=== PATIENT | male | born 2000 | race Caucasian/White ===

== ENCOUNTER 2021-02-04 13:50 | Outpatient (REF) | payer OTHER, SELFPAY ==
[2021-02-04 14:38] LABS: COVID-19 Test Positive (Negative)
== END 2021-02-04 13:51 | disposition home or self-care (01) ==
LOC: HO.LAB 13:50
PROVIDERS: Visit Provider Internal Medicine
DX: Z20.822 Contact with and (suspected) exposure to COVID-19 (principal)
CPT/HCPCS: 36415; 87635; C9803

== ENCOUNTER 2021-02-10 13:31 | Outpatient (REF) | payer OTHER, SELFPAY | END 2021-02-10 13:32 | disposition home or self-care (01) | LOC: HO.LAB 13:31 | PROVIDERS: Visit Provider Internal Medicine | DX: Z20.822 Contact with and (suspected) exposure to COVID-19 (principal) | CPT/HCPCS: C9803; U0003; U0005 ==

== ENCOUNTER 2021-06-05 19:57 | Emergency (ER) | payer OTHER, SELFPAY ==
[2021-06-05 21:53] LABS: COVID-19 Test Positive (Negative)
[2021-06-05 21:55] LABS: Strep A Nucleic Acid Negative (Negative)
--- NOTE | 2021-06-05 22:43 | ED_ITS ---
HPI - URI/Sore Throat General Stated Complaint: sore throat, back pain,headache Time Seen by Provider: 06/05/21 22:37 Source: patient Mode of arrival: ambulatory Limitations: no limitations History of Present Illness HPI Narrative: Patient comes to the emergency room complaining of sore throat, body ache, back pain. Patient states he has had multiple COVID tests over the last few weeks and all of them have been negative. Patient states that in February of last year he tested positive. Patient denies chest pain, no shortness of breath. Patient complaining of coughing. Patient states that he was smoking insurance cigarettes with a person 3 days ago that tested positive for COVID-19 2 days ago Related Data Previous Rx's Medication Instructions Recorded dextromethorphan HBr 10 mg/5 mL 10 mg (5 mL) PO Q4-6H PRN #118 ml 06/05/21 oral liquid ibuprofen 400 mg tablet 400 mg PO Q6H PRN #14 tab 06/05/21 Allergies Allergy/AdvReac Type Severity Reaction Status Date / Time Penicillins [PENICILLINS] Allergy Unknown SWELLING, Unverified 02/20/20 16:48 HIVES Review of Systems Review of Systems: Constitutional : No Weight loss, No Fever, No Chills, No Night Sweats, complaining of generalized malaise, fatigue ENT/Mouth : No Hearing loss, No Ear Pain, No Nasal Congestion, No Sinus Pain, No Hoarseness, No sore throat, No Rhinorrhea, No Swallowing Difficulty Eyes: No Eye Pain, No Swelling, No Redness, No Foreign Body, No Discharge, No Vision Changes Cardiovascular : No Chest Pain, No SOB, No Dyspnea on Exertion, No Orthopnea, No Edema, No Palpitations Respiratory : Complaining of dry Cough, No Sputum, No Wheezing, No Smoke Exposure, No Dyspnea Gastrointestinal : No Nausea, No Vomiting, No Diarrhea, No Constipation, No abdominal Pain, No Hematochezia, No Melena Genitourinary : no irregular bleeding, No Dysuria, No Urinary Frequency, No Hematuria, No Urinary Incontinence, No Urgency, No Flank Pain, No Urinary Flow Changes, No Hesitancy Musculoskeletal : Complaining of back pain and myalgias, No Joint Swelling Skin : No Skin Lesions, No rash Neuro : No Weakness, No Numbness, No Paresthesias, No Loss of Consciousness, No Dizziness, No Headache Psych : No Anxiety/Panic, No Depression, No SI/HI/AH/VH, No Social Issues, Heme/Lymph: No Bruising, No Bleeding,No Lymphadenopathy Endocrine : No Polyuria, No Polydipsia, No Temperature Intolerance PMFSH Social History Social History Advance Directives: No Physical Exam Const: Other: Appearance: Alert. Oriented X3. No acute distress. Well- appearing Eyes: Pupils equal, round and reactive to light. ENT: Pharynx normal. Neck: Normal inspection. Neck supple. No lymph nodes noted. No crepitus CVS: Normal heart rate and rhythm. Pulses normal. Normal S1 and S2 Respiratory: No respiratory distress. Breath sounds normal. No Wheezing. No rales Abdomen: Soft and nontender. No rigidity. No distention. Skin: Skin warm and dry. Normal skin color. Normal skin turgor. Extremities: No lower extremity edema. No Lacerations. No Rash Neuro: Oriented X 3. No motor deficit. No sensory deficit. Moving all extermities. No slurred speech. Course Course Course Narrative: I discussed with the patient he tested positive for COVID-19. MDM - URI/Sore Throat Lab Data Labs: Lab Results 06/05/21 06/05/21 Range/Units 21:31 21:31 COVID-19 ([facility]) Positive A (Negative) COVID-19 Clin Com See Note S. pyogenes GrpA C[facility] Negative (Negative) Discharge Plan Discharge Clinical Impression: COVID-19 Patient Disposition: Home, Self-Care Instructions: COVID-19 (Coronavirus Disease 2019) (ED) Additional Instructions: Please follow-up with your primary care physician tomorrow. If you have any worsening or new symptoms, please return to the emergency room or call 911 Prescriptions: New ibuprofen 400 mg tablet 400 mg PO Q6H PRN (Reason: fever or pain) Qty: 14 RF: 0 dextromethorphan HBr 10 mg/5 mL liquid 10 mg PO Q4-6H PRN (Reason: cough) Qty: 118 RF: 0 Stand Alone Forms: Work/School Release
[2021-06-05 23:24] VITALS: BP 170/43; PULSE 93; RESP 16; TEMP 37.9; O2SAT 98; BMI 20.9
== END 2021-06-05 23:26 | disposition home or self-care (01) ==
PROVIDERS: Emergency Provider Emergency Medicine
DX: U07.1 COVID-19 (principal); J02.8 Acute pharyngitis due to other specified organisms; M79.10 Myalgia, unspecified site
CPT/HCPCS: 36415; 87635; 87651; 99282; 99283

== ENCOUNTER 2021-08-05 14:37 | Emergency (ER) | payer OTHER, SELFPAY ==
[2021-08-05 14:39] VITALS: BP 122/82; PULSE 91; RESP 18; TEMP 36.1; O2SAT 97; BMI 20.9
--- NOTE | 2021-08-05 15:27 | ED_ITS ---
HPI - General Adult General Chief complaint: Back Pain/Injury Stated complaint: BACK PAIN Time Seen by Provider: 08/05/21 15:27 Source: patient Limitations: no limitations History of Present Illness HPI narrative: Patient complaining of midback lower back pain. 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 Patient states pain increases with range of motion and twisting. Pain 6/10. No relief with [id number] Motrin at home. Patient takes no prescribed medications. Patient denies past medical history. Patient does smoke tobacco. Patient denies loss of bowel movements or urine incontinence. Symptoms mild to moderate Related Data Previous Rx's Medication Instructions Recorded dextromethorphan HBr 10 mg/5 mL 10 mg (5 mL) PO Q4-6H PRN #118 ml 06/05/21 oral liquid ibuprofen 400 mg tablet 400 mg PO Q6H PRN #14 tab 06/05/21 ibuprofen 600 mg tablet 600 mg PO TID PRN #20 tab 08/05/21 methocarbamol 750 mg tablet 750 mg PO TID PRN #20 tab 08/05/21 Allergies Allergy/AdvReac Type Severity Reaction Status Date / Time Penicillins [PENICILLINS] Allergy Unknown SWELLING, Verified 08/05/21 14:39 HIVES Review of Systems Constitutional: Constitutional: Denies body ache(s), Denies chills, Denies fever(s) and Denies headache(s) ENT: Denies headache(s) and Denies neck pain Cardiovascular: Cardiovascular: Denies chest pain and Denies dyspnea Respiratory: Respiratory: Denies dyspnea Musculoskeletal: Musculoskeletal: Reports back pain, Denies arthralgias, Denies neck pain and Reports stiffness Neurologic: Denies headache(s) Allergic/Immunologic: Allergic/Immunologic: Reports no additional allergic/immunologic complaints [facility] Past Medical History Attestation statement: The following information was validated with the patient. Social History Social History Advance Directives: No Advance Directives Information Provided: No Physical Exam ED Vital Signs: Vital Signs - 24 hr 08/05/21 14:39 Temperature 97.0 F Pulse Rate 91 Respiratory Rate 18 Blood Pressure 122/82 Pulse Oximetry 97 BMI result Body Mass Index 20.9 vital signs have been reviewed as normal and appeared to be correct. Blood pressure normal. Heart rate normal. Respiration rate normal. Temperature normal. Oxygen saturation normal. Appearance: Alert. Oriented X3. No acute distress. Head: Normal external exam. Normocephalic. Atraumatic. Eyes: PERRLA. EOMI. Conjunctiva and sclera normal. Eyelids normal. ENT: Pharynx normal. Uvula midline. Moist mucous membranes. Neck: Soft full range of motion, no JVD CVS: Heart regular rate and rhythm no murmurs and rubs Respiratory: Breath sounds are clear to auscultation bilaterally. No accessory muscle use noted. Back: Full range of motion noted. Positive paraspinal muscle tenderness mid back no midline tenderness Skin: Skin warm and dry. Normal skin color. No ecchymosis no rashes. Extremities: Patient is ambulatory with no ataxia or Neuro: Oriented X 3. No motor deficit. No sensory deficit. Reflexes normal. Course Course Course Narrative: Lumbar strain Mid back strain Muscle spasm Symptoms consistent with muscle skeletal pain no imaging needed at this time advised follow-up with PCP as needed medication as directed. Discharge Plan Discharge Clinical Impression: Acute mid back pain Patient Disposition: Home, Self-Care Instructions: Back Pain (ED) Additional Instructions: Rest no heavy lifting Medications as directed Prescriptions: New ibuprofen 600 mg tablet 600 mg PO TID PRN (Reason: pain) Qty: 20 0RF methocarbamol 750 mg tablet 750 mg PO TID PRN (Reason: muscle spasm) Qty: 20 0RF No Action ibuprofen 400 mg tablet 400 mg PO Q6H PRN (Reason: fever or pain) Qty: 14 0RF dextromethorphan HBr 10 mg/5 mL liquid 10 mg PO Q4-6H PRN (Reason: cough) Qty: 118 0RF Stand Alone Forms: Work/School Release
== END 2021-08-05 16:00 | disposition home or self-care (01) ==
PROVIDERS: Emergency Provider Emergency Medicine
DX: M54.50 Low back pain, unspecified (principal)
CPT/HCPCS: 99282; 99283

== ENCOUNTER 2022-01-09 14:10 | Emergency (ER) | payer OTHER, SELFPAY ==
[2022-01-09 15:04] VITALS: BP 122/92; PULSE 68; RESP 18; TEMP 36.6; O2SAT 97; BMI 18.6
[2022-01-09 15:20] LABS: COVID-19 Test Negative (Negative); IDNOW Serial# 16C4AD1C
== END 2022-01-09 20:05 | disposition left against medical advice (07) ==
PROVIDERS: Emergency Provider Emergency Medicine
DX: Z20.822 Contact with and (suspected) exposure to COVID-19 (principal)
CPT/HCPCS: 87635; 99281; 99283

== ENCOUNTER 2022-09-04 15:52 | Emergency (ER) | payer OTHER, SELFPAY ==
--- NOTE | ~2022-09-04 | XR_ITS ---
EXAMINATION: XR CHEST CLINICAL INFORMATION: Cough. COMPARISON: None available. TECHNIQUE: Frontal view of the chest was obtained. FINDINGS: No significant abnormality is noted involving the heart, lungs, mediastinum, bony thorax or soft tissues. XR/XR chest 1V IMPRESSION: Unremarkable chest examination.
[2022-09-04 15:59] VITALS: BP 145/85; PULSE 100; RESP 18; TEMP 36.8; O2SAT 99
--- NOTE | 2022-09-04 16:06 | ED_ITS ---
HPI - URI/Sore Throat General Chief Complaint: Upper Respiratory Symptoms <CASS Ballesteros - Last Filed: 09/04/22 16:07> Stated Complaint: common cold, chills, coughing, covid test <CASS Ballesteros - Last Filed: 09/04/22 16:07> Time Seen by Provider: 09/04/22 16:18 <CASS Ballesteros - Last Filed: 09/04/22 16:07> Source: patient <Val Horton NP - Last Filed: 09/04/22 18:58> Mode of arrival: ambulatory <Val Horton NP - Last Filed: 09/04/22 18:58> Limitations: no limitations <Val Horton NP - Last Filed: 09/04/22 18:58> History of Present Illness HPI Narrative: 22-year-old male presents with 3 days of upper respiratory symptoms, cough, subjective fevers, chills, and wheezing. States that he has been using [id number] cough medication with poor effect. <Val Horton NP - Last Filed: 09/04/22 18:58> MD elicited complaint: fever, cough, nasal congestion and other (Wheezing) <Val Horton NP - Last Filed: 09/04/22 18:58> Pertinent past history: asthma <Val Horton NP - Last Filed: 09/04/22 18:58> Onset (ago): day(s) (3) <Val Horton NP - Last Filed: 09/04/22 18:58> Consistency: constant and progressively worsening <Val Horton NP - Last Filed: 09/04/22 18:58> Severity: moderate <Val Horton NP - Last Filed: 09/04/22 18:58> Description of mucous: clear and watery <Val Horton NP - Last Filed: 09/04/22 18:58> Able to tolerate fluids by mouth: Yes <Val Horton NP - Last Filed: 09/04/22 18:58> Exacerbating factors: exertion and deep breaths <Val Horton NP - Last Filed: 09/04/22 18:58> Relieving factors: nothing <PABLITO Beckwith Last Filed: 09/04/22 18:58> Context: sick contacts <PABLITO Beckwith Last Filed: 09/04/22 18:58> Associated symptoms: fever, chills, myalgias, rhinorrhea, nasal congestion and cough <PABLITO Beckwith Last Filed: 09/04/22 18:58> Treatments prior to arrival: cold medicine <PABLITO Beckwith Last Filed: 09/04/22 18:58> Related Data Home Medications: Previous Rx's Medication Instructions Recorded dextromethorphan HBr 10 mg/5 mL 10 mg (5 mL) PO Q4-6H PRN cough 06/05/21 oral liquid #118 mL ibuprofen 400 mg tablet 400 mg PO Q6H PRN fever or pain 06/05/21 #14 tabs ibuprofen 600 mg tablet 600 mg PO TID PRN pain #20 tabs 08/05/21 methocarbamol 750 mg tablet 750 mg PO TID PRN muscle spasm #20 08/05/21 tabs albuterol sulfate 90 mcg/actuation 2 puff inhalation Q4-6H PRN 09/04/22 aerosol inhaler (Proventil HFA) shortness of breath or wheezing 30 days #6.7 grams benzonatate 100 mg capsule 100 mg PO TID PRN cough #20 caps 09/04/22 <CASS Ballesteros Last Filed: 09/04/22 16:07> Allergies/Adverse Reactions: Allergies Allergy/AdvReac Type Severity Reaction Status Date / Time Penicillins [PENICILLINS] Allergy Unknown SWELLING, Verified 08/05/21 14:39 HIVES <CASS Ballesteros Last Filed: 09/04/22 16:07> Review of Systems Review of Systems: Constitutional: Positive subjective Fever, positive Chills Cardiovascular: No Chest Pain, No SOB Respiratory: Positive Cough, No Dyspnea, positive wheezing Gastrointestinal: No Nausea, No Vomiting, No Diarrhea, No abdominal Pain Genitourinary: No Dysuria, No Hematuria Musculoskeletal: No joint pain, No Myalgias, No Joint Swelling Skin: No Skin lacerations, No rash Neuro: No Weakness, No Dizziness, No Headache <PABLITO Beckwith Last Filed: 09/04/22 18:58> Yes all other systems are reviewed and are negative <Val Horton NP - Last Filed: 09/04/22 18:58> [facility] Past Medical History Attestation statement: The following information was validated with the patient. <Val Horton NP - Last Filed: 09/04/22 18:58> Source: old records reviewed <Val Horton NP - Last Filed: 09/04/22 18:58> Social History Social History: Social History Advance Directives: No Advance Directives Information Provided: No <CASS Ballesteros - Last Filed: 09/04/22 16:07> Physical Exam Vital Signs: Vital Signs: Last Vital Signs Temp 98.3 F 09/04/22 15:59 Pulse 92 09/04/22 17:05 Resp 20 09/04/22 17:05 BP 145/85 H 09/04/22 15:59 Pulse Ox 99 09/04/22 15:59 O2 Del Method Room Air 09/04/22 15:59 BMI result Body Mass Index 20.0 <CASS Ballesteros - Last Filed: 09/04/22 16:07> Vital Signs: Last Vital Signs Temp 98.3 F 09/04/22 15:59 Pulse 92 09/04/22 17:05 Resp 20 09/04/22 17:05 BP 145/85 H 09/04/22 15:59 Pulse Ox 99 09/04/22 15:59 O2 Del Method Room Air 09/04/22 15:59 BMI result Body Mass Index 20.0 <Val Horton NP - Last Filed: 09/04/22 18:58> Appearance: Alert. Oriented X3. No acute distress. Eyes: Pupils equal, round and reactive to light. EOMI. ENT: Pharynx normal. Neck: Normal inspection. Neck supple. CVS: Normal heart rate and rhythm. Pulses normal. Respiratory: No respiratory distress. Expiratory wheezing throughout all lobes. Diminished air flow the bases. Skin: Skin warm and dry. Normal skin color. Normal skin turgor. Extremities: No lower extremity edema. Gait well balanced well coordinated. Neuro: No motor deficit. No sensory deficit. Cranial nerves 2-12 technique <Val Horton NP - Last Filed: 09/04/22 18:58> Course Course Course Narrative: This is an RME: Additional HPI, ROS, PE not included below will be deferred to primary provider. This is a 22-year-old male presenting with upper respiratory symptoms x4 days, patient reports he thinks he has COVID-19, tells me he has had COVID 6 times and he has against the vaccine. Reports cough, congestion, fatigue, malaise, diffuse headache Physical exam benign Plan viral testing and chest x-ray <CASS Ballesteros - Last Filed: 09/04/22 16:07> This is an RME: Additional HPI, ROS, PE not included below will be deferred to primary provider. This is a 22-year-old male presenting with upper respiratory symptoms x4 days, patient reports he thinks he has COVID-19, tells me he has had COVID 6 times and he has against the vaccine. Reports cough, congestion, fatigue, malaise, diffuse headache Physical exam benign Plan viral testing and chest x-ray 16:15 22-year-old male presents with 4 days of upper respiratory symptoms, states that he feels the same as when he was tested positive for COVID-19. He has had cough, wheezing, subjective fevers and chills, and fatigue over the past 4 days. He does have a history of asthma, does not take any medications, and has never been intubated for asthma exacerbation. Patient's physical exam lung sounds expiratory wheezing with diminished bases, appears nontoxic, afebrile. Patient does complain of myalgia. Will give dexamethasone, albuterol neb, Tessalon and Tylenol. Viral panel pending. Chest x-ray pending. 17:43 chest x-ray and viral panel are negative for acute findings. Plan of care is to treat with supportive measures, give albuterol inhaler, Tessalon Perles and Tylenol Motrin. Patient verbalized understanding of and agrees plan of care discharge home. Verbalized understanding of signs and symptoms indicating need for emergent intervention This patient does not have an established primary care. Patient would like to be referred to [facility]. I have referred this patient to Dr. Milian and Denys Ag, patient has had untreated asthma for the several years. This patient may require pulmonology consult in the near future. <Val Horton NP - Last Filed: 09/04/22 18:58> Medications Administered Discontinued Medications Generic Name Dose Route Start Last Admin Trade Name Freq PRN Reason Stop Dose Admin Acetaminophen 650 mg 09/04/22 16:23 09/04/22 16:55 Acetaminophen 325 Mg Tablet PO 09/04/22 16:24 650 mg ONCE ONE Administration Albuterol Sulfate 10 mg 09/04/22 16:23 09/04/22 17:04 Albuterol Sulfate (0.083%) 2.5 Mg/3 Ml Vial.Neb INHALE 09/04/22 16:24 10 mg ONCE ONE Administration Albuterol Sulfate 2 puff 09/04/22 17:43 09/04/22 18:23 Albuterol Sulfate 90 Mcg 8 Gm Inhaler INHALE 09/04/22 17:44 2 puff ONCE ONE Administration Benzonatate 200 mg 09/04/22 16:23 09/04/22 16:55 Benzonatate 100 Mg Capsule PO 09/04/22 16:24 200 mg ONCE ONE Administration Dexamethasone 10 mg 09/04/22 16:23 09/04/22 16:55 Dexamethasone 2 Mg Tablet PO 09/04/22 16:24 10 mg ONCE ONE Administration <CASS Ballesteros - Last Filed: 09/04/22 16:07> Medications Administered Discontinued Medications Generic Name Dose Route Start Last Admin Trade Name Freq PRN Reason Stop Dose Admin Acetaminophen 650 mg 09/04/22 16:23 09/04/22 16:55 Acetaminophen 325 Mg Tablet PO 09/04/22 16:24 650 mg ONCE ONE Administration Albuterol Sulfate 10 mg 09/04/22 16:23 09/04/22 17:04 Albuterol Sulfate (0.083%) 2.5 Mg/3 Ml Vial.Neb INHALE 09/04/22 16:24 10 mg ONCE ONE Administration Albuterol Sulfate 2 puff 09/04/22 17:43 09/04/22 18:23 Albuterol Sulfate 90 Mcg 8 Gm Inhaler INHALE 09/04/22 17:44 2 puff ONCE ONE Administration Benzonatate 200 mg 09/04/22 16:23 09/04/22 16:55 Benzonatate 100 Mg Capsule PO 09/04/22 16:24 200 mg ONCE ONE Administration Dexamethasone 10 mg 09/04/22 16:23 09/04/22 16:55 Dexamethasone 2 Mg Tablet PO 09/04/22 16:24 10 mg ONCE ONE Administration <Val Horton NP - Last Filed: 09/04/22 18:58> Medical Decision Making Differential Diagnosis Differential Diagnoses: The differential diagnosis associated with the presentation includes <Val Horton NP - Last Filed: 09/04/22 18:58> URI, COVID, influenza, pneumonia <Val Horton NP - Last Filed: 09/04/22 18:58> Lab Data MDM Lab Attestation statement: I reviewed the patient's lab results. <Val Horton NP - Last Filed: 09/04/22 18:58> Labs: Lab Results 09/04/22 09/04/22 Range/Units 16:18 16:18 COVID-19 ([facility]) Negative (Negative) COVID-19 Clin Com See Note Influenza Type A ([facility]) Negative (Negative) Influenza Type B ([facility]ASS) Negative (Negative) Influenza A & B Note See Note <CASS Ballesteros - Last Filed: 09/04/22 16:07> Lab Results 09/04/22 09/04/22 Range/Units 16:18 16:18 COVID-19 ([facility]) Negative (Negative) COVID-19 Clin Com See Note Influenza Type A (CASS) Negative (Negative) Influenza Type B (CASS) Negative (Negative) Influenza A & B Note See Note <Val Horton NP - Last Filed: 09/04/22 18:58> Independent Interpretation I performed an independent interpretation of an: Plain X-Ray <Val Horton NP - Last Filed: 09/04/22 18:58> Radiology Impression Discussion of test interpretation with radiology: I have reviewed the radiologist's reading. <Val Horton NP - Last Filed: 09/04/22 18:58> Radiologist Impression: EXAMINATION: XR CHEST CLINICAL INFORMATION: Cough. COMPARISON: None available. TECHNIQUE: Frontal view of the chest was obtained. FINDINGS: No significant abnormality is noted involving the heart, lungs, mediastinum, bony thorax or soft tissues. XR/XR chest 1V IMPRESSION: Unremarkable chest examination. ? <Val Horton NP - Last Filed: 09/04/22 18:58> External Record Review External record reviewed: Outpatient record and Prior outpatient labs <Val Horton NP - Last Filed: 09/04/22 18:58> Chronic Conditions Patient?s care impacted by: Other (Asthma) <Val Horton NP - Last Filed: 09/04/22 18:58> Discharge Plan Discharge Clinical Impression: Upper respiratory infection <CASS Ballesteros - Last Filed: 09/04/22 16:07> Patient Disposition: Home, Self-Care <CASS Ballesteros - Last Filed: 09/04/22 16:07> Instructions: Upper Respiratory Infection (ED), Viral Syndrome (ED) <CASS Ballesteros - Last Filed: 09/04/22 16:07> Additional Instructions: You were evaluated for upper respiratory symptoms. Your x-rays negative for acute findings. Your COVID influenza RSV test are negative. Please use albuterol inhaler as needed for shortness of breath. Use Tessalon Perles every 8 hours as needed for cough. Drink plenty of fluids. Alternate Tylenol 650 mg every 6 hours and Motrin 600 mg every 6 hours as needed for pain and fever management. Consider taking these medications 3 hours apart so you have pain and fever management every 3 hours. Write down what time you take these medications to prevent accidental overdose. Motrin is the same medication as Advil and ibuprofen. Tylenol is the same medication as acetaminophen. Thank you for choosing this emergency department for evaluation. Please follow-up with primary care physician as needed. Return to the emergency department for any new, concerning, or worsening symptoms. <CASS Ballesteros - Last Filed: 09/04/22 16:07> Prescriptions: New albuterol sulfate [Proventil HFA] 90 mcg/actuation HFA aerosol inhaler 2 puff inhalation Q4-6H PRN (Reason: shortness of breath or wheezing) 30 Days Qty: 6.7 6RF Rx Instructions: May dispense medication equivalent accepted by patient's insurance benzonatate 100 mg capsule 100 mg PO TID PRN (Reason: cough) Qty: 20 0RF No Action ibuprofen 400 mg tablet 400 mg PO Q6H PRN (Reason: fever or pain) Qty: 14 0RF dextromethorphan HBr 10 mg/5 mL liquid 10 mg PO Q4-6H PRN (Reason: cough) Qty: 118 0RF ibuprofen 600 mg tablet 600 mg PO TID PRN (Reason: pain) Qty: 20 0RF methocarbamol 750 mg tablet 750 mg PO TID PRN (Reason: muscle spasm) Qty: 20 0RF <CASS Ballesteros - Last Filed: 09/04/22 16:07> Referrals: Denys Dugan FNP-BC [Nurse Practitioner] - 2 weeks (Needs primary care) <CASS Ballesteros - Last Filed: 09/04/22 16:07> Stand Alone Forms: Work/School Release <CASS Ballesteros - Last Filed: 09/04/22 16:07> Interventions: ED Discharge Assessment Last Done: 09/04/22 18:37 <CASS Ballesteros - Last Filed: 09/04/22 16:07> Discharge Date/Time: 09/04/22 18:38 <CASS Ballesteros - Last Filed: 09/04/22 16:07>
[2022-09-04] MEDS: Acetaminophen 325 MG TABLET 650 MG PO (16:55)
[2022-09-04] MEDS: Benzonatate 100 MG CAPSULE 200 MG PO (16:55)
[2022-09-04] MEDS: dexAMETHasone 2 MG TABLET 10 MG PO (16:55)
[2022-09-04 17:00] LABS: COVID-19 Test Negative (Negative); IDNOW Serial# 08D9AD1C; IDNOW Serial# BCCEAD1C; Influenza A Negative (Negative); Influenza B2 Negative (Negative)
[2022-09-04] MEDS: Albuterol Sulfate (0.083%) 2.5 MG/3 ML VIAL.NEB 10 MG INHALE (17:04)
[2022-09-04 17:05] VITALS: PULSE 92; RESP 20; O2SAT 97
[2022-09-04] MEDS: Albuterol Sulfate 90 MCG 8 GM INHALER 2 PUFF INHALE (18:23)
== END 2022-09-04 18:38 | disposition home or self-care (01) ==
PROVIDERS: Physician Assistant; Emergency Provider Emergency Medicine Emergency Medical Services
DX: J06.9 Acute upper respiratory infection, unspecified (principal); R05.9 Cough, unspecified; R50.9 Fever, unspecified; Z20.822 Contact with and (suspected) exposure to COVID-19; Z20.828 Contact with and (suspected) exposure to other viral communicable diseases
CPT/HCPCS: 71045; 87502; 87635; 94640; 99283; J8540

== ENCOUNTER 2023-03-13 11:15 | Emergency (ER) | payer OTHER, SELFPAY | END 2023-03-13 14:05 | disposition left against medical advice (07) | PROVIDERS: Emergency Provider Emergency Medicine | DX: J02.8 Acute pharyngitis due to other specified organisms (principal); R05.9 Cough, unspecified ==

== ENCOUNTER 2023-04-24 09:45 | Emergency (ER) | payer SELFPAY ==
[2023-04-24 10:02] VITALS: BP 118/74; PULSE 75; RESP 16; TEMP 36.7; O2SAT 96; BMI 18.6
[2023-04-24 10:57] VITALS: BP 133/90; PULSE 61; RESP 16; TEMP 36.7; O2SAT 99
[2023-04-24 11:27] LABS: Influenza A PCR NEGATIVE (Negative); Influenza B PCR NEGATIVE (Negative); Resp Syncy Virus RNA Qual PCR NEGATIVE (Negative); SARS COV2 PCR INHOUSE NEGATIVE (Negative)
--- NOTE | 2023-04-24 11:40 | ED_ITS ---
HPI - General Adult General Chief complaint: Upper Respiratory Symptoms Stated complaint: chest pain congestion Time Seen by Provider: 04/24/23 11:05 Source: patient Mode of arrival: ambulatory Limitations: no limitations History of Present Illness HPI narrative: 23-year-old male without significant medical history presents complaining of congestion, cough, wheezing for the past 3 days, patient reports he works at [employer] multiple sick contacts. He reports he has been waiting for too long and would like to leave when I get his history, he tells me he just feels cold and has chills. Reports chest discomfort when he coughs and shortness of breath with cough however at rest no chest pain or shortness of breath. Denies headache, vision changes, sore throat, ear pain, nausea, vomiting, abdominal pain. Related Data Previous Rx's Medication Instructions Recorded dextromethorphan HBr 10 mg/5 mL 10 mg (5 mL) PO Q4-6H PRN cough 06/05/21 oral liquid #118 mL ibuprofen 400 mg tablet 400 mg PO Q6H PRN fever or pain 06/05/21 #14 tabs ibuprofen 600 mg tablet 600 mg PO TID PRN pain #20 tabs 08/05/21 methocarbamol 750 mg tablet 750 mg PO TID PRN muscle spasm #20 08/05/21 tabs albuterol sulfate 90 mcg/actuation 2 puff inhalation Q4-6H PRN 09/04/22 aerosol inhaler (Proventil HFA) shortness of breath or wheezing 30 days #6.7 grams benzonatate 100 mg capsule 100 mg PO TID PRN cough #20 caps 09/04/22 Allergies Allergy/AdvReac Type Severity Reaction Status Date / Time Penicillins [PENICILLINS] Allergy Unknown SWELLING, Verified 08/05/21 14:39 HIVES Review of Systems Review of Systems: Constitutional : No Weight loss, No Fever, No Chills, + Fatigue, + Malaise ENT/Mouth : No sore throat, No Rhinorrhea Eyes: No Eye Pain, No Swelling, No Redness Cardiovascular : No Chest Pain, No SOB, No Dyspnea on Exertion, No Orthopnea, No Edema, No Palpitations Respiratory : + Cough, No Sputum, No Wheezing Gastrointestinal : No Nausea, No Vomiting, No Diarrhea, No Constipation, No abdominal Pain, No Hematochezia, No Melena Genitourinary : No Dysuria, No Urinary Frequency, No Hematuria, Musculoskeletal : No joint pain, No Myalgias, No Joint Swelling Skin : No Skin Lesions, No rash Neuro : No Weakness, No Numbness, No Dizziness, No Headache Psych : No Anxiety/Panic, No Depression All other systems reviewed and are negative Yes all other systems are reviewed and are negative [facility] Past Medical History Attestation statement: The following information was validated with the patient. Source: old records reviewed and nursing notes reviewed Social History Social History Alcohol intake: current Alcohol intake frequency: holidays/special occasions only Smoked in Last 30 Days: Yes Use of substances other than those prescribed or required for medical reasons: Yes Substance Use Type: Marijuana Advance Directives: No Advance Directives Information Provided: No Physical Exam ED Vital Signs: Vital Signs - 24 hr 04/24/23 10:02 04/24/23 10:57 Temperature 98.1 F 98.0 F Pulse Rate 75 61 Respiratory Rate 16 16 Blood Pressure 118/74 133/90 H Pulse Oximetry 96 99 Oxygen Delivery Method Room Air Room Air BMI result Body Mass Index 18.6 vss Appearance: Alert.? Oriented X3.? No acute distress.? Head: Normocephalic, atraumatic, no step-offs or deformities Eyes: Pupils equal, round and reactive to light.? CVS: Normal heart rate and rhythm.? Pulses normal.? Respiratory: No respiratory distress.? Breath sounds normal.? Skin: Skin warm and dry.? Normal skin color.? Normal skin turgor.? Extremities: No lower extremity edema.? No calf ttp. 5/5 strength to bilateral upper and lower extremities Neuro: Oriented X 3.? No motor deficit.? No sensory deficit. CN 2-12 intact Course Reevaluation(s) Reevaluation #1: Flu/COVID/RSV negative. Educated patient on diagnosis and treatment plan, answered all question, patient verbalizes understanding. At this time patient will be discharged home, advised to return with new or worsening symptoms. Educated on worrisome signs and symptoms and when to return. At this time I feel comfortable discharge home. Time: 11:44 Medical Decision Making Medical Decision Making [facility] Narrative: 1142 23-year-old male presents with cough, congestion, reports multiple sick contacts at past 3 days. Physical examination benign. Likely upper respiratory infection versus bronchitis versus asthma versus viral illness. Unlikely pulmonary embolism, no risk factors, ACS, dissection, pneumothorax, pneumonia. Plan will discharge with albuterol and work note. Patient requesting to leave does not want an x-ray he just wants to get out of here because he is cold. He reports he wants to go into his warm vehicle. Educated patient on diagnosis and treatment plan, answered all question, patient verbalizes understanding. At this time patient will be discharged home, advised to return with new or worsening symptoms. Educated on worrisome signs and symptoms and when to return. At this time I feel comfortable discharge home. Differential Diagnosis Differential Diagnoses: The differential diagnosis associated with the presentation includes Likely upper respiratory infection versus bronchitis versus asthma versus viral illness. Unlikely pulmonary embolism, no risk factors, ACS, dissection, pneumothorax, pneumonia. Admission/Observation Consideration of admission/observation: Escalation of care including admission/observation considered not indicated Lab Data MDM Lab Attestation statement: I reviewed the patient's lab results. Labs: Lab Results 04/24/23 Range/Units 10:14 Influenza Type A (PCR) NEGATIVE (Negative) Influenza Type B (PCR) NEGATIVE (Negative) RSV RNA Qual (PCR) NEGATIVE (Negative) SARS-CoV-2 RNA (RT-PCR) NEGATIVE (Negative) Tests considered The following testing was considered but not selected: patient wanted to leave no true indication for chest xray patient saturating well lungs clear. Prescription Management I considered prescription management with: Other (albuterol ) Discharge Plan Discharge Clinical Impression: Viral infection Patient Disposition: Home, Self-Care Instructions: Viral Syndrome (ED) Additional Instructions: Take your medications as prescribed. If you were prescribed antibiotics today, it is important that you take your medication to their entirety, do not skip any doses, do not finish them early. Follow-up with your primary care provider this week. Return to the emergency department with new or worsening symptoms. Such as fevers, chills, chest pain, shortness of breath, nausea, vomiting, dizziness, headache, vision changes, lethargy In case of emergency call 911 Prescriptions: No Action ibuprofen 400 mg tablet 400 mg PO Q6H PRN (Reason: fever or pain) Qty: 14 0RF dextromethorphan HBr 10 mg/5 mL liquid 10 mg PO Q4-6H PRN (Reason: cough) Qty: 118 0RF ibuprofen 600 mg tablet 600 mg PO TID PRN (Reason: pain) Qty: 20 0RF methocarbamol 750 mg tablet 750 mg PO TID PRN (Reason: muscle spasm) Qty: 20 0RF albuterol sulfate [Proventil HFA] 90 mcg/actuation HFA aerosol inhaler 2 puff inhalation Q4-6H PRN (Reason: shortness of breath or wheezing) 30 Days Qty: 6.7 6RF Rx Instructions: May dispense medication equivalent accepted by patient's insurance benzonatate 100 mg capsule 100 mg PO TID PRN (Reason: cough) Qty: 20 0RF Referrals: Physician,Unknown J [Primary Care Provider] - 3 days Stand Alone Forms: Work/School Release
== END 2023-04-24 12:01 | disposition home or self-care (01) ==
PROVIDERS: Emergency Provider Emergency Medicine
DX: B34.9 Viral infection, unspecified (principal); R05.9 Cough, unspecified; Z20.828 Contact with and (suspected) exposure to other viral communicable diseases; Z20.822 Contact with and (suspected) exposure to COVID-19
CPT/HCPCS: 0241U; 99283; 99284

== ENCOUNTER 2023-05-22 13:30 | Emergency (ER) | payer SELFPAY | END 2023-05-22 15:57 | disposition left against medical advice (07) | LOC: HO.ED 15:26 | PROVIDERS: Emergency Provider Emergency Medicine | DX: J02.9 Acute pharyngitis, unspecified (principal); R05.9 Cough, unspecified ==

== ENCOUNTER 2023-05-22 23:18 | Emergency (ER) | payer SELFPAY ==
[2023-05-22 23:23] VITALS: BP 119/78; PULSE 81; RESP 20; TEMP 36.1; O2SAT 98; BMI 19.4
--- NOTE | 2023-05-22 23:56 | MHC.EDTECH ---
Patient rsv/covid swab drawn and sent to lab .
[2023-05-23 00:13] VITALS: BP 110/69; PULSE 62; RESP 16; TEMP 36.8; O2SAT 98
--- NOTE | 2023-05-23 00:18 | ED_ITS ---
HPI - URI/Sore Throat General Chief Complaint: Upper Respiratory Symptoms Stated Complaint: upper respiratory Time Seen by Provider: 05/23/23 00:15 Source: patient Mode of arrival: ambulatory Limitations: no limitations History of Present Illness HPI Narrative: Patient is a 23-year-old male presents emergency department for evaluation of upper respiratory symptoms including nonproductive cough, generalized body aches and intermittent headache for the past 2 days. Denies fever, shaking chills, neck pain, neck stiffness, known sick contacts, nausea, vomiting, abdominal pain, numbness or tingling of the extremities. Related Data Previous Rx's Medication Instructions Recorded dextromethorphan HBr 10 mg/5 mL 10 mg (5 mL) PO Q4-6H PRN cough 06/05/21 oral liquid #118 mL ibuprofen 400 mg tablet 400 mg PO Q6H PRN fever or pain 06/05/21 #14 tabs ibuprofen 600 mg tablet 600 mg PO TID PRN pain #20 tabs 08/05/21 methocarbamol 750 mg tablet 750 mg PO TID PRN muscle spasm #20 08/05/21 tabs albuterol sulfate 90 mcg/actuation 2 puff inhalation Q4-6H PRN 09/04/22 aerosol inhaler (Proventil HFA) shortness of breath or wheezing 30 days #6.7 grams benzonatate 100 mg capsule 100 mg PO TID PRN cough #20 caps 09/04/22 Allergies Allergy/AdvReac Type Severity Reaction Status Date / Time Penicillins [PENICILLINS] Allergy Unknown SWELLING, Verified 08/05/21 14:39 HIVES Review of Systems Review of Systems: Yes all other systems are reviewed and are negative [facility] Past Medical History Attestation statement: The following information was validated with the patient. Source: old records reviewed Social History Social History Alcohol intake: current Alcohol intake frequency: holidays/special occasions only Substance Use Type: Marijuana Advance Directives: No Advance Directives Information Provided: Yes Physical Exam Vital Signs: Vital Signs: Last Vital Signs Temp 98.3 F 05/23/23 00:13 Pulse 62 05/23/23 00:13 Resp 16 05/23/23 00:13 BP 110/69 05/23/23 00:13 Pulse Ox 98 05/23/23 00:13 O2 Del Method Room Air 05/23/23 00:13 BMI result Body Mass Index 19.4 Appearance: Alert.?Oriented to person, place and time. No acute distress.?Normal affect. Eyes: Pupils equal, round and reactive to light.? ENT: TM normal bilaterally. Pharynx normal.?? Neck: Normal inspection.? Neck supple.??No cervical adenopathy CVS: Heart sounds normal. Normal heart rate and rhythm.? Pulses normal.?? Respiratory: No respiratory distress.? Lung sounds clear to auscultation bilaterally?? Abdomen: Soft and non-tender. Normoactive bowel sounds. Skin: Skin warm and dry.? Normal skin color.? ? Extremities: No lower extremity edema.? Neuro: Moves all extremities spontaneously. Sensation intact bilaterally. No motor deficits. Ambulates with normal steady gait. Medical Decision Making Medical Decision Making [facility] Narrative: Patient is a 23-year-old male with no reported past medical history presenting for evaluation of upper respiratory symptoms. COVID-19/influenza/RSV testing is negative At this time history and physical exam not consistent with ACS/PE/pneumonia. Well-appearing, nontoxic, afebrile, no tachycardia or tachypnea/hypoxia. Speaking clear full sentences, ambulatory with steady gait. Discussed conservative treatment including rest, hydration, Tylenol/ibuprofen as needed for fever and body aches, saline nasal spray, humidifier, [id number] cold medication. Advised to follow-up with primary care provider as needed, discussed reasons to return back to the emergency department. All questions were answered. Patient discharged home in stable condition. Provided with a return to worknote. Differential Diagnosis Differential Diagnoses: The differential diagnosis associated with the presentation includes (As noted above) Admission/Observation Consideration of admission/observation: Escalation of care including admission/observation considered (The narrative above) Lab Data [facility] Lab Attestation statement: I reviewed the patient's lab results. Labs: Lab Results 05/22/23 Range/Units 23:55 Influenza Type A (PCR) NEGATIVE (Negative) Influenza Type B (PCR) NEGATIVE (Negative) RSV RNA Qual (PCR) NEGATIVE (Negative) SARS-CoV-2 RNA (RT-PCR) NEGATIVE (Negative) Tests considered The following testing was considered but not selected: Considered CXR, see narrative above Prescription Management I considered prescription management with: Antibiotic (Suspect viral etiology, antibiotics deferred at this time.) Discharge Plan Discharge Clinical Impression: Upper respiratory infection Patient Disposition: Home, Self-Care Instructions: Upper Respiratory Infection (ED) Additional Instructions: Be sure to rest, stay well hydrated drinking plenty of fluids, eat small frequent meals. Tylenol/ibuprofen can be used as needed for fever/pain. [id number] cold medications may be helpful as well for symptoms. Saline nasal spray, humidifier may be helpful for nasal congestion. You may return to the emergency department with any new or worsening symptoms or concerns. Follow-up with your primary care provider as needed. Should remain out of school/ work until symptoms have resolved and have been without a fever for 24 hours without the use of Tylenol or ibuprofen. Prescriptions: No Action ibuprofen 400 mg tablet 400 mg PO Q6H PRN (Reason: fever or pain) Qty: 14 0RF dextromethorphan HBr 10 mg/5 mL liquid 10 mg PO Q4-6H PRN (Reason: cough) Qty: 118 0RF ibuprofen 600 mg tablet 600 mg PO TID PRN (Reason: pain) Qty: 20 0RF methocarbamol 750 mg tablet 750 mg PO TID PRN (Reason: muscle spasm) Qty: 20 0RF albuterol sulfate [Proventil HFA] 90 mcg/actuation HFA aerosol inhaler 2 puff inhalation Q4-6H PRN (Reason: shortness of breath or wheezing) 30 Days Qty: 6.7 6RF Rx Instructions: May dispense medication equivalent accepted by patient's insurance benzonatate 100 mg capsule 100 mg PO TID PRN (Reason: cough) Qty: 20 0RF Referrals: Physician,Unknown J [Primary Care Provider] - Stand Alone Forms: Work/School Release Interventions: ED Discharge Assessment Last Done: 05/23/23 01:52 Discharge Date/Time: 05/23/23 01:52
[2023-05-23 00:44] LABS: Influenza A PCR NEGATIVE (Negative); Influenza B PCR NEGATIVE (Negative); Resp Syncy Virus RNA Qual PCR NEGATIVE (Negative); SARS COV2 PCR INHOUSE NEGATIVE (Negative)
== END 2023-05-23 01:52 | disposition home or self-care (01) ==
PROVIDERS: Emergency Provider Internal Medicine
DX: J06.9 Acute upper respiratory infection, unspecified (principal); Z20.822 Contact with and (suspected) exposure to COVID-19; Z20.828 Contact with and (suspected) exposure to other viral communicable diseases
CPT/HCPCS: 0241U; 99283

== ENCOUNTER 2023-07-02 21:04 | Emergency (ER) | payer SELFPAY ==
[2023-07-02 21:06] VITALS: BP 121/74; PULSE 100; RESP 14; TEMP 38; O2SAT 96; BMI 18.8
[2023-07-02 22:04] LABS: COVID-19 Test Positive (Negative); IDNOW Serial# 08D9AD1C
--- NOTE | 2023-07-02 22:18 | ED_ITS ---
HPI - General Adult General Chief complaint: General Medical Stated complaint: headache/chills/overall not feeling well Time Seen by Provider: 07/02/23 22:05 Source: patient, RN notes reviewed and old records reviewed Mode of arrival: ambulatory Limitations: no limitations History of Present Illness HPI narrative: 23-year-old male presents for evaluation of fevers, chills, body aches and weakness. His symptoms started around 2:00 p.m. earlier this afternoon. He reports it feels similar to when he had COVID-19 in the past Denies any sick contacts Denies any sharp chest pain or shortness of breath Related Data Previous Rx's Medication Instructions Recorded dextromethorphan HBr 10 mg/5 mL 10 mg (5 mL) PO Q4-6H PRN cough 06/05/21 oral liquid #118 mL ibuprofen 400 mg tablet 400 mg PO Q6H PRN fever or pain 06/05/21 #14 tabs ibuprofen 600 mg tablet 600 mg PO TID PRN pain #20 tabs 08/05/21 methocarbamol 750 mg tablet 750 mg PO TID PRN muscle spasm #20 08/05/21 tabs albuterol sulfate 90 mcg/actuation 2 puff inhalation Q4-6H PRN 09/04/22 aerosol inhaler (Proventil HFA) shortness of breath or wheezing 30 days #6.7 grams benzonatate 100 mg capsule 100 mg PO TID PRN cough #20 caps 09/04/22 Allergies Allergy/AdvReac Type Severity Reaction Status Date / Time Penicillins [PENICILLINS] Allergy Unknown SWELLING, Verified 08/05/21 14:39 HIVES Review of Systems Constitutional: Constitutional: Reports body ache(s), Reports chills, Reports fever(s), Reports headache(s), Reports malaise and Reports weakness ENT: Reports headache(s) and Denies sore throat Cardiovascular: Cardiovascular: Denies dyspnea Respiratory: Respiratory: Denies cough and Denies dyspnea Gastrointestinal: Gastrointestinal: Denies abdominal pain, Reports nausea and Denies vomiting Musculoskeletal: Musculoskeletal: Denies back pain Integumentary/Breasts: Skin/Breast: Denies rash Neurologic: Reports headache(s) and Reports weakness PMFSH Social History Social History Alcohol intake: current Alcohol intake frequency: holidays/special occasions only Substance Use Type: Marijuana Advance Directives: No Advance Directives Information Provided: No Physical Exam ED Vital Signs: Vital Signs - 24 hr 07/02/23 21:06 Temperature 100.4 F Pulse Rate 100 Respiratory Rate 14 Blood Pressure 121/74 Pulse Oximetry 96 Oxygen Delivery Method Room Air BMI result Body Mass Index 18.8 Const General: healthy appearing, comfortable, no acute distress, alert and awake Nutritional Appearance: well nourished Orientation/consciousness: patient oriented x3 HENMT Head: Yes normocephalic and Yes atraumatic Throat: Yes posterior oropharynx normal Eyes Eyelids: Yes eyelids normal Conjunctivae: conjunctivae normal Sclerae: sclerae normal Corneas: corneas normal Pupils: Equal, round and reactive pupils present EOM: EOMs intact bilaterally Neck Neck: Yes full ROM Resp Effort & Inspection: normal respiratory effort, able to speak in complete sentences, no audible wheezes and not labored Auscultation: clear to auscultation bilaterally Cardio Rate: regular rate Rhythm: regular rhythm GI Inspection: No distended Palpation (GI): Soft to palpation, not firm, nontender, no guarding and not rigid Skin General skin exam: no rashes or lesions noted and elasticity normal Neuro General: patient oriented x3 Cranial nerves: Yes CN's II-XII intact bilaterally, Yes Equal, round and reactive pupils present and Yes Bilaterally intact EOM present Cognition (Neuro): normal cognition Extrem Other: Moving all extremities well without any obvious deformities Medical Decision Making Medical Decision Making [facility] Narrative: 23-year-old male presents for evaluation of fevers, chills, body aches. He appears quite well, his vital signs are stable. He tested positive for COVID- 19. Discussed symptomatic care with the patient. He does not meet criteria for Paxlovid treatment Differential Diagnosis Differential Diagnoses: The differential diagnosis associated with the presentation includes Viral syndrome COVID-19 Influenza Pneumonia Pharyngitis Lab Data Labs: Lab Results 07/02/23 Range/Units 21:47 COVID-19 ([facility]) Positive A (Negative) COVID-19 Clin Com See Note Influenza Type A ([facility]) Negative (Negative) Influenza Type B ([facility]) Negative (Negative) Influenza A & B Note See Note Discharge Plan Discharge Clinical Impression: COVID-19 Patient Disposition: Home, Self-Care Instructions: COVID-19 (Coronavirus Disease 2019) (ED) Additional Instructions: You tested positive for COVID-19. Hydrate well. Use Motrin/Tylenol for fevers, body aches. Return for new or worsening symptoms, especially if he of difficulty breathing Follow-up with your primary doctor Prescriptions: No Action ibuprofen 400 mg tablet 400 mg PO Q6H PRN (Reason: fever or pain) Qty: 14 0RF dextromethorphan HBr 10 mg/5 mL liquid 10 mg PO Q4-6H PRN (Reason: cough) Qty: 118 0RF ibuprofen 600 mg tablet 600 mg PO TID PRN (Reason: pain) Qty: 20 0RF methocarbamol 750 mg tablet 750 mg PO TID PRN (Reason: muscle spasm) Qty: 20 0RF albuterol sulfate [Proventil HFA] 90 mcg/actuation HFA aerosol inhaler 2 puff inhalation Q4-6H PRN (Reason: shortness of breath or wheezing) 30 Days Qty: 6.7 6RF Rx Instructions: May dispense medication equivalent accepted by patient's insurance benzonatate 100 mg capsule 100 mg PO TID PRN (Reason: cough) Qty: 20 0RF Stand Alone Forms: Work/School Release
[2023-07-02 22:23] LABS: IDNOW Serial# 152EDE1D; Influenza A Negative (Negative); Influenza B2 Negative (Negative)
== END 2023-07-02 22:54 | disposition home or self-care (01) ==
PROVIDERS: Emergency Provider Emergency Medicine Emergency Medical Services
DX: U07.1 COVID-19 (principal); R51.9 Headache, unspecified; M79.10 Myalgia, unspecified site; R50.9 Fever, unspecified; Z79.899 Other long term (current) drug therapy
CPT/HCPCS: 87502; 87635; 99282; 99283

== ENCOUNTER 2023-08-07 07:29 | Emergency (ER) | payer OTHER, SELFPAY ==
--- NOTE | ~2023-08-07 | XR_ITS ---
EXAMINATION: XR FINGER, LEFT CLINICAL INFORMATION: Third digit pain and limited range of motion. COMPARISON: None available. TECHNIQUE: Two views of the left long finger. PA view of the left hand. FINDINGS: Alignment is anatomic. No displaced fracture or dislocation. Joint spaces are maintained. XR/XR finger LT min 2V IMPRESSION: No acute abnormality.
[2023-08-07 07:32] VITALS: BP 108/84; PULSE 63; RESP 19; TEMP 36.6; O2SAT 98; BMI 19.4
--- NOTE | 2023-08-07 07:43 | ED.EXTPRO ---
HPI - Extremity Problem General Chief complaint: Extremity Injury, Upper Stated complaint: Finger inj-work related Time Seen by Provider: 08/07/23 07:35 Source: patient Mode of arrival: ambulatory Limitations: no limitations History of Present Illness HPI Narrative: 23-year-old male with no significant past medical history presents to the ED today for evaluation of finger pain x1 day. He admits that while working at [employer] yesterday he began having pain to his left 3rd finger. He notes that they were very busy yesterday because it's tax season and he does not recall if it hit the finger on anything. Pain is localized between the left 3rd MCP and PIP. No radiation. He has not taken any OTC medications for pain. Denies numbness/tingling/weakness of the extremity, fever, chills. Related Data Previous Rx's Medication Instructions Recorded dextromethorphan HBr 10 mg/5 mL 10 mg (5 mL) PO Q4-6H PRN cough 06/05/21 oral liquid #118 mL ibuprofen 400 mg tablet 400 mg PO Q6H PRN fever or pain 06/05/21 #14 tabs ibuprofen 600 mg tablet 600 mg PO TID PRN pain #20 tabs 08/05/21 methocarbamol 750 mg tablet 750 mg PO TID PRN muscle spasm #20 08/05/21 tabs albuterol sulfate 90 mcg/actuation 2 puff inhalation Q4-6H PRN 09/04/22 aerosol inhaler (Proventil HFA) shortness of breath or wheezing 30 days #6.7 grams benzonatate 100 mg capsule 100 mg PO TID PRN cough #20 caps 09/04/22 Allergies Allergy/AdvReac Type Severity Reaction Status Date / Time Penicillins [PENICILLINS] Allergy Unknown SWELLING, Verified 08/07/23 07:31 HIVES Review of Systems Review of Systems: Constitutional: No fever, chills, fatigue, night sweats, weight changes ENT/Mouth: No ear pain, hearing loss, nasal congestion, sinus pain, rhinorrhea, sore throat Eyes: No eye pain, swelling, redness, vision changes, discharge Cardio: No chest pain, palpitations, PERDUE, orthopnea, peripheral edema Pulm: No SOB, cough, sputum, wheezing, dyspnea, hemoptysis GI: No nausea, vomiting, hematemesis, abdominal pain, diarrhea, constipation, hematochezia, melena : No irregular bleeding, dysuria, frequency, urgency, hesitancy, hematuria, flank pain, urinary flow changes, urinary incontinence or retention MSK: No back pain, neck pain, joint pain, myalgias, +left third finger pain Skin: No lesions, rashes Neuro: No weakness, numbness, paresthesias, LOC, dizziness, headache Psych: No anxiety/panic, depression, SI/HI, AH/VH All other systems reviewed and are negative. [facility] Past Medical History Attestation statement: The following information was validated with the patient. Source: old records reviewed and nursing notes reviewed Social History Social History Alcohol intake: current Alcohol intake frequency: holidays/special occasions only Substance Use Type: Marijuana Advance Directives: No Physical Exam Vital Signs: Vital Signs: Last Vital Signs Temp 98 F 08/07/23 07:32 Pulse 63 08/07/23 07:32 Resp 19 08/07/23 07:32 BP 108/84 08/07/23 07:32 Pulse Ox 98 08/07/23 07:32 O2 Del Method Room Air 08/07/23 07:32 BMI result Body Mass Index 19.4 Vital signs stable Const: General: cooperative, healthy appearing, comfortable, no acute distress, alert, awake and Physically active Orientation/consciousness: patient oriented x3 Limitations: no limitations HEENT: Head: Yes normal to inspection, Yes No palpable skull fracture present, Yes normocephalic and Yes atraumatic Eyes: General: appearance normal, both eyes and all related structures Conjunctivae: conjunctivae normal Sclerae: sclerae normal Pupils: Equal, round and reactive pupils present Neck: Neck: Yes normal visual inspection and Yes full ROM Resp: Effort & Inspection: normal respiratory effort Auscultation: clear to auscultation bilaterally Cardio: Rate: regular rate Rhythm: regular rhythm Back/Spine/Pelvis: Other: No midline spinous tenderness or step off deformity. No paraspinal muscle tenderness. Skin: General skin exam: no rashes or lesions noted Neuro: General: patient oriented x3 Cranial nerves: Yes Equal, round and reactive pupils present Extrem: Other: + left 3rd digit with no overlying skin changes, deformity or edema. Full ROM intact to MCP, DIP, PIP. Full ROM intact to wrist. Capillary refill less than 2 seconds. Tender to palpation over dorsal/palmar aspect finger. Finger to thumb opposition intact. Collections Agent strength intact. 2+ radial/ulnar pulses bilaterally. Medical Decision Making Medical Decision Making MDM Narrative: 23-year-old male with no significant past medical history presents to the ED today for evaluation of finger pain x1 day. Vital signs stable. Patient is nontoxic-appearing and in no acute distress. On exam, left 3rd digit with no overlying skin changes, deformity or edema. Full ROM intact to MCP, DIP, PIP. Full ROM intact to wrist. Capillary refill less than 2 seconds. Tender to palpation over dorsal/palmar aspect finger. Finger to thumb opposition intact. Collections Agent strength intact. 2+ radial/ulnar pulses bilaterally. Differential diagnosis includes fracture, dislocation, ligament/tendon injury, arthritis. Unlikely NV compromise, threat to limb, compartment syndrome, gout, pseudogout. Plan for x-ray, pain control and re-evaluation. Differential Diagnosis Differential Diagnoses: The differential diagnosis associated with the presentation includes As above Admission/Observation Not indicated Independent Interpretation I performed an independent interpretation of an: Plain X-Ray Interpretation: I personally reviewed x-rays and agree with radiologist's interpretation. Radiology Impression Discussion of test interpretation with radiology: I have reviewed the radiologist's reading. Radiologist Impression: EXAMINATION: XR FINGER, LEFT CLINICAL INFORMATION: Third digit pain and limited range of motion. COMPARISON: None available. TECHNIQUE: Two views of the left long finger. PA view of the left hand. FINDINGS: Alignment is anatomic. No displaced fracture or dislocation. Joint spaces are maintained. XR/XR finger LT min 2V IMPRESSION: No acute abnormality. External Record Review External record reviewed: Inpatient record, Office record, Outpatient record, Prior outpatient labs, Prior outpatient radiology, Primary care record and Outside ED record Prescription Management I considered prescription management with: Pain Medication Social Determinants Patient?s care significantly limited by Social Determinants of Health including: Other Social Determinant of Health Discharge Plan Discharge Clinical Impression: Finger sprain Patient Disposition: Home, Self-Care Instructions: Finger Sprain (ED) Additional Instructions: You were seen in the ED today for pain to your left 3rd finger. Your x-rays do not exhibit acute fracture or dislocation. You may use ice several times per day for 20 minutes at a time for the next 48 hours and then change to heat. In addition take Tylenol and ibuprofen at home for pain/discomfort. Follow up with your primary care provider as needed If your pain worsens, if you develop new numbness, tingling, weakness, loss of bowel or bladder function call 911 or return to the ER immediately for evaluation. As this was a work related incident, you have been provided with contact information to [facility]. [facility]: [phone] Prescriptions: No Action ibuprofen 400 mg tablet 400 mg PO Q6H PRN (Reason: fever or pain) Qty: 14 0RF dextromethorphan HBr 10 mg/5 mL liquid 10 mg PO Q4-6H PRN (Reason: cough) Qty: 118 0RF ibuprofen 600 mg tablet 600 mg PO TID PRN (Reason: pain) Qty: 20 0RF methocarbamol 750 mg tablet 750 mg PO TID PRN (Reason: muscle spasm) Qty: 20 0RF albuterol sulfate [Proventil HFA] 90 mcg/actuation HFA aerosol inhaler 2 puff inhalation Q4-6H PRN (Reason: shortness of breath or wheezing) 30 Days Qty: 6.7 6RF Rx Instructions: May dispense medication equivalent accepted by patient's insurance benzonatate 100 mg capsule 100 mg PO TID PRN (Reason: cough) Qty: 20 0RF Referrals: [facility] [Outside]
[2023-08-07] MEDS: Ibuprofen 600 MG TABLET PO (09:26)
== END 2023-08-07 09:42 | disposition home or self-care (01) ==
PROVIDERS: Emergency Provider Emergency Medicine
DX: S63.613A Unspecified sprain of left middle finger, initial encounter (principal); X58.XXXA Exposure to other specified factors, initial encounter; Y93.9 Activity, unspecified; Y92.9 Unspecified place or not applicable; Y99.9 Unspecified external cause status
CPT/HCPCS: 73140; 99283

== ENCOUNTER 2023-09-02 11:34 | Emergency (ER) | payer SELFPAY ==
[2023-09-02 11:46] VITALS: BP 117/72; PULSE 79; RESP 18; TEMP 36.9; O2SAT 97; BMI 18.2
--- NOTE | 2023-09-02 11:50 | ED_ITS ---
HPI - URI/Sore Throat General Chief Complaint: Upper Respiratory Symptoms Stated Complaint: sore throat Time Seen by Provider: 09/02/23 11:57 Source: patient Mode of arrival: ambulatory Limitations: no limitations History of Present Illness HPI Narrative: 23-year-old male with no significant past medical history presents to emergency department with complaints of a 2 day history of sore throat, dizziness, lighth eadedness, and chills. He reports he has been using [id number] medications with mild relief in symptoms. She denies any fevers, chills, shortness of breath, change in phonation, difficulty tolerating secretions, nausea, or vomiting. Pertinent positives and negatives discussed in HPI Related Data Previous Rx's Medication Instructions Recorded dextromethorphan HBr 10 mg/5 mL 10 mg (5 mL) PO Q4-6H PRN cough 06/05/21 oral liquid #118 mL ibuprofen 400 mg tablet 400 mg PO Q6H PRN fever or pain 06/05/21 #14 tabs ibuprofen 600 mg tablet 600 mg PO TID PRN pain #20 tabs 08/05/21 methocarbamol 750 mg tablet 750 mg PO TID PRN muscle spasm #20 08/05/21 tabs albuterol sulfate 90 mcg/actuation 2 puff inhalation Q4-6H PRN 09/04/22 aerosol inhaler (Proventil HFA) shortness of breath or wheezing 30 days #6.7 grams benzonatate 100 mg capsule 100 mg PO TID PRN cough #20 caps 09/04/22 benzonatate 200 mg capsule 200 mg PO TID PRN cough #14 caps 09/02/23 Allergies Allergy/AdvReac Type Severity Reaction Status Date / Time Penicillins [PENICILLINS] Allergy Unknown SWELLING, Verified 08/07/23 07:31 HIVES Review of Systems Review of Systems: Yes all other systems are reviewed and are negative [facility] Social History Social History Alcohol intake: current Alcohol intake frequency: holidays/special occasions only Substance Use Type: Marijuana Advance Directives: No Advance Directives Information Provided: No Physical Exam Vital Signs: Vital Signs: Last Vital Signs Temp 98.5 F 09/02/23 13:23 Pulse 100 09/02/23 13:23 Resp 16 09/02/23 13:23 BP 125/69 09/02/23 13:23 Pulse Ox 98 09/02/23 13:23 O2 Del Method Room Air 09/02/23 13:23 BMI result Body Mass Index 18.2 Nursing notes and vital signs reviewed. GENERAL APPEARANCE: A&0 x 4, generally well appearing, no acute distress HENMT: Normal to inspection, atraumatic, face symmetrical. Normal external ears, nose, and oropharynx clear with mild erythema. 1+ left tonsil 2+ right tonsil without exudate. EYE: PERRLA, EOM intact, structures appear normal NECK: Supple without stiffness or restricted ROM. HEART: Normal rate and regular rhythm, normal S1/S2, no M/R/G LUNGS: LS CTA, moving air well. Able to speak in complete sentences. No aircraft instrument tester ckles, wheezes, or rhonchi auscultated BACK: No CVAT, no obvious deformity EXTREMITIES: Moving all extremities without difficulty. Normal capillary refill. NEUROLOGICAL: Alert and oriented, moving all 4 extremities with equal strength. CN not formally tested but appearing grossly intact. Observed to ambulate with normal gait. Cognition normal SKIN: Warm and dry without any lesions, rash, or visible sores Course Course Course Narrative: This is an RME: Additional HPI, ROS, PE not included below will be deferred to primary provider. 23 yo M presents w/ sore throat, lightheaded, chills x 2 days worsening. Plan- viral test Medications Administered Discontinued Medications Generic Name Dose Route Start Last Admin Trade Name Freq PRN Reason Stop Dose Admin Benzonatate 200 mg 09/02/23 12:11 09/02/23 13:21 Benzonatate 100 Mg Capsule PO 09/02/23 12:12 200 mg ONCE ONE Administration Lidocaine HCl 15 ml 09/02/23 12:11 09/02/23 13:21 Lidocaine Hcl Viscous 2 % 15 Ml Solution MUCOUS MEM 09/02/23 12:12 15 ml ONCE ONE Administration Medical Decision Making Medical Decision Making MDM Narrative: Old records reviewed for previous imaging, lab studies, ECGs, and notes. Patient was assessed the emergency department with no acute distress or toxicity noted. serology negative for COVID, flu, and strep throat. Patient's symptoms are consistent with an upper respiratory infection. Benzonatate central patient preferred pharmacy for further management of cough and patient educated to increase fluids to prevent dehydration and rest. Patient is safe for discharge at this time with plan for [id number] Tylenol and/or NSAID such as ibuprofen or naproxen for fever/discomfort with dosing as per packaging. HPI, PE, diagnostics, and plan discussed with patient and family with no unanswered questions at this time. Strict return precautions given to return to the emergency department with new, worsening, or concerning emergent symptoms. Recommended to follow-up with there primary care provider in 24-48 hours for further treatment and management. Differential Diagnosis Differential Diagnoses: The differential diagnosis associated with the presentation includes But not limited to upper respiratory infection, pharyngitis, viral syndrome, pneumonia, BENEFITS PROCESSOR, Christiano's angina, angioedema, allergic reaction, sepsis, malignancy Lab Data MDM Lab Attestation statement: I reviewed the patient's lab results. Labs: Lab Results 09/02/23 Range/Units 11:50 Influenza Type A (PCR) NEGATIVE (Negative) Influenza Type B (PCR) NEGATIVE (Negative) RSV RNA Qual (PCR) NEGATIVE (Negative) SARS-CoV-2 RNA (RT-PCR) NEGATIVE (Negative) S. pyogenes GrpA CASS Negative (Negative) Discharge Plan Discharge Clinical Impression: Upper respiratory infection Patient Disposition: Home, Self-Care Instructions: Upper Respiratory Infection (ED) Prescriptions: New benzonatate 200 mg capsule 200 mg PO TID PRN (Reason: cough) Qty: 14 0RF No Action ibuprofen 400 mg tablet 400 mg PO Q6H PRN (Reason: fever or pain) Qty: 14 0RF dextromethorphan HBr 10 mg/5 mL liquid 10 mg PO Q4-6H PRN (Reason: cough) Qty: 118 0RF ibuprofen 600 mg tablet 600 mg PO TID PRN (Reason: pain) Qty: 20 0RF methocarbamol 750 mg tablet 750 mg PO TID PRN (Reason: muscle spasm) Qty: 20 0RF albuterol sulfate [Proventil HFA] 90 mcg/actuation HFA aerosol inhaler 2 puff inhalation Q4-6H PRN (Reason: shortness of breath or wheezing) 30 Days Qty: 6.7 6RF Rx Instructions: May dispense medication equivalent accepted by patient's insurance benzonatate 100 mg capsule 100 mg PO TID PRN (Reason: cough) Qty: 20 0RF Referrals: Physician,Unknown J [Primary Care Provider] - Stand Alone Forms: Work/School Release Interventions: ED Discharge Assessment Last Done: 09/02/23 13:23 Discharge Date/Time: 09/02/23 13:25
[2023-09-02 12:12] LABS: IDNOW Serial# 6674DD1D; Strep A Nucleic Acid Negative (Negative)
[2023-09-02 13:02] LABS: Influenza A PCR NEGATIVE (Negative); Influenza B PCR NEGATIVE (Negative); Resp Syncy Virus RNA Qual PCR NEGATIVE (Negative); SARS COV2 PCR INHOUSE NEGATIVE (Negative)
[2023-09-02] MEDS: Benzonatate 100 MG CAPSULE 200 MG PO (13:21)
[2023-09-02] MEDS: Lidocaine HCl Viscous 2 % 15 ML SOLUTION MUCOUS MEM (13:21)
[2023-09-02 13:23] VITALS: BP 125/69; PULSE 100; RESP 16; TEMP 36.9; O2SAT 98
== END 2023-09-02 13:25 | disposition home or self-care (01) ==
PROVIDERS: Physician Assistant; Emergency Provider Student in an Organized Health Care Education/Training Program
DX: J06.9 Acute upper respiratory infection, unspecified (principal); J02.9 Acute pharyngitis, unspecified; R42 Dizziness and giddiness; R68.83 Chills (without fever); F12.90 Cannabis use, unspecified, uncomplicated; Z11.52 Encounter for screening for COVID-19; Z20.828 Contact with and (suspected) exposure to other viral communicable diseases
CPT/HCPCS: 0241U; 87651; 99282; 99283

== ENCOUNTER 2023-10-14 15:10 | Emergency (ER) | payer SELFPAY ==
[2023-10-14 16:18] VITALS: BP 137/85; PULSE 69; RESP 18; TEMP 37.2; O2SAT 97; BMI 18.4
--- NOTE | 2023-10-14 16:19 | ED.NAVMDI ---
HPI - Nausea/Vomiting/Diarrhea General Chief complaint: Nausea/Vomiting/Diarrhea Stated complaint: abd pain,diarrhea vomiting Time Seen by Provider: 10/14/23 16:22 Source: patient Mode of arrival: ambulatory Limitations: no limitations History of Present Illness HPI Narrative: 23-year-old male with no significant past medical history presents emergency department with complaints of a 1 day history of nausea, vomiting, and diarrhea. He states he and his girlfriend ate at a seafood buffet yesterday night he has been feeling unwell since. 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 He denies any current nausea, hematemesis, fever, chills Pertinent positives and negatives discussed in the HPI Related Data Previous Rx's ?Medication ?Instructions ?Recorded dextromethorphan HBr 10 mg/5 mL 10 mg (5 mL) PO Q4-6H PRN cough 06/05/21 oral liquid #118 mL ibuprofen 400 mg tablet 400 mg PO Q6H PRN fever or pain 06/05/21 #14 tabs ibuprofen 600 mg tablet 600 mg PO TID PRN pain #20 tabs 08/05/21 methocarbamol 750 mg tablet 750 mg PO TID PRN muscle spasm #20 08/05/21 tabs albuterol sulfate 90 mcg/actuation 2 puff inhalation Q4-6H PRN 09/04/22 aerosol inhaler (Proventil HFA) shortness of breath or wheezing 30 days #6.7 grams benzonatate 100 mg capsule 100 mg PO TID PRN cough #20 caps 09/04/22 benzonatate 200 mg capsule 200 mg PO TID PRN cough #14 caps 09/02/23 ondansetron 4 mg disintegrating 4 mg PO Q6H PRN nausea and 10/14/23 tablet vomiting #20 tabs Allergies Allergy/AdvReac Type Severity Reaction Status Date / Time Penicillins [PENICILLINS] Allergy Unknown SWELLING, Verified 10/14/23 16:19 ELKE Review of Systems Review of Systems: Yes all other systems are reviewed and are negative PMFSH Social History Social History Alcohol intake: current Alcohol intake frequency: holidays/special occasions only Substance Use Type: Marijuana Advance Directives: No Advance Directives Information Provided: No Do you have a plan to hurt others: No Plan Physical Exam Vital Signs: Vital Signs: Last Vital Signs Temp 98.9 F 10/14/23 16:32 Pulse 69 10/14/23 16:32 Resp 18 10/14/23 16:32 BP 137/85 10/14/23 16:32 Pulse Ox 97 10/14/23 16:32 O2 Del Method Room Air 10/14/23 16:32 BMI result Body Mass Index 18.4 Nursing notes and vital signs reviewed. GENERAL APPEARANCE: A&0 x 4, generally well appearing, no acute distress HENMT: Normal to inspection, atraumatic, face symmetrical. Normal external ears, nose, and oropharynx clear. EYE: PERRLA, EOM intact, structures appear normal NECK: Supple without stiffness or restricted ROM. HEART: Normal rate and regular rhythm, normal S1/S2, no M/R/G LUNGS: LS CTA, moving air well. Able to speak in complete sentences. No crackles, wheezes, or rhonchi auscultated BACK: No CVAT, no obvious deformity EXTREMITIES: Moving all extremities without difficulty. Normal capillary refill. NEUROLOGICAL: Alert and oriented, moving all 4 extremities with equal strength. CN not formally tested but appearing grossly intact. Observed to ambulate with normal gait. Cognition normal SKIN: Warm and dry without any lesions, rash, or visible sores Medical Decision Making Medical Decision Making MDM Narrative: Old records reviewed for previous imaging, lab studies, ECGs, and notes. Patient was assessed the emergency department with no acute distress or toxicity noted. Patient reports no nausea at this time, however; Zofran intubation preferred pharmacy for further management. Patient educated increase fluid intake to prevent dehydration. Patient is safe for discharge at this time with plan for [id number] Tylenol and/or NSAID such as ibuprofen or naproxen for fever/discomfort with dosing as per packaging. HPI, PE, diagnostics, and plan discussed with patient and family with no unanswered questions at this time. Strict return precautions given to return to the emergency department with new, worsening, or concerning emergent symptoms. Recommended to follow-up with there primary care provider in 24-48 hours for further treatment and management. Differential Diagnosis Differential Diagnoses: The differential diagnosis associated with the presentation includes But not limited to viral syndrome, gastroenteritis, peptic ulcer disease, GI bleed, sepsis, malignancy External Record Review External record reviewed: Outpatient record and Prior outpatient labs Tests considered The following testing was considered but not selected: [facility] for COVID, flu, and RSV considered, however; patient declined Prescription Management I considered prescription management with: Antibiotic Antibiotics were considered, however; no bacterial infection was identified at this time Discharge Plan Discharge Clinical Impression: Nausea & vomiting Patient Disposition: Home, Self-Care Instructions: Acute Nausea and Vomiting (ED) Prescriptions: New ondansetron 4 mg tablet,disintegrating 4 mg PO Q6H PRN (Reason: nausea and vomiting) Qty: 20 0RF No Action ibuprofen 400 mg tablet 400 mg PO Q6H PRN (Reason: fever or pain) Qty: 14 0RF dextromethorphan HBr 10 mg/5 mL liquid 10 mg PO Q4-6H PRN (Reason: cough) Qty: 118 0RF ibuprofen 600 mg tablet 600 mg PO TID PRN (Reason: pain) Qty: 20 0RF methocarbamol 750 mg tablet 750 mg PO TID PRN (Reason: muscle spasm) Qty: 20 0RF albuterol sulfate [Proventil HFA] 90 mcg/actuation HFA aerosol inhaler 2 puff inhalation Q4-6H PRN (Reason: shortness of breath or wheezing) 30 Days Qty: 6.7 6RF Rx Instructions: May dispense medication equivalent accepted by patient's insurance benzonatate 100 mg capsule 100 mg PO TID PRN (Reason: cough) Qty: 20 0RF benzonatate 200 mg capsule 200 mg PO TID PRN (Reason: cough) Qty: 14 0RF [place] [facility] [facility] [place] [facility] [place] [facility] [place] [facility] [facility] [place]] Stand Alone Forms: Work/School Release Interventions: ED Discharge Assessment Last Done: 10/14/23 16:32 Discharge Date/Time: 10/14/23 16:34 Print Language: Ivorian
[2023-10-14 16:32] VITALS: BP 137/85; PULSE 69; RESP 18; TEMP 37.2; O2SAT 97
== END 2023-10-14 16:34 | disposition home or self-care (01) ==
PROVIDERS: Emergency Provider Emergency Medicine
DX: R11.2 Nausea with vomiting, unspecified (principal); R19.7 Diarrhea, unspecified; Z79.899 Other long term (current) drug therapy
CPT/HCPCS: 99282; 99283

== ENCOUNTER 2023-10-17 23:22 | Emergency (ER) | payer SELFPAY ==
--- NOTE | ~2023-10-17 | XR_ITS ---
EXAMINATION: XR ANKLE, RIGHT CLINICAL INFORMATION: Pain. COMPARISON: None available. TECHNIQUE: AP, lateral, and mortise views of the right ankle. FINDINGS: No fracture. Alignment is anatomic. No erosions. Joint spaces are maintained. Soft tissues are normal. XR/XR ankle RT 2V IMPRESSION: No significant abnormality identified.
[2023-10-17 23:24] VITALS: BP 107/70; PULSE 88; RESP 18; TEMP 36.7; O2SAT 97; BMI 19.9
[2023-10-18 02:24] VITALS: BP 116/73; PULSE 64; RESP 17; TEMP 36.6; O2SAT 97
--- NOTE | 2023-10-18 02:30 | PC.NURSE ---
pt c/o pain in right foot/ankle. this RN attempted to medicate pt w/ one time dose of tylenol - pt refused. requesting something else. notified/aware.
--- NOTE | 2023-10-18 03:05 | ED.LOWEXIN ---
HPI - Extremity Injury (Lower) General Chief Complaint: Extremity Injury, Lower Stated Complaint: ankle inj Time Seen by Provider: 10/18/23 02:58 Source: patient Mode of arrival: ambulatory Limitations: no limitations History of Present Illness HPI Narrative: 23 yo male R ankle pain and injury after jumping while playing basketball complaint: ankle injury Onset (ago): hour(s) (several) Injury: Right: ankle Type of Injury: other (states he doesn't know how it happened) Place: street/outdoors Severity: moderate Relieving factors: nothing Exacerbating factors: weight bearing, movement and palpation Context: fall Associated symptoms: snap/pop sensation Other symptoms: none Related Data Previous Rx's ?Medication ?Instructions ?Recorded dextromethorphan HBr 10 mg/5 mL 10 mg (5 mL) PO Q4-6H PRN cough 06/05/21 oral liquid #118 mL ibuprofen 400 mg tablet 400 mg PO Q6H PRN fever or pain 06/05/21 #14 tabs ibuprofen 600 mg tablet 600 mg PO TID PRN pain #20 tabs 08/05/21 methocarbamol 750 mg tablet 750 mg PO TID PRN muscle spasm #20 08/05/21 tabs albuterol sulfate 90 mcg/actuation 2 puff inhalation Q4-6H PRN 09/04/22 aerosol inhaler (Proventil HFA) shortness of breath or wheezing 30 days #6.7 grams benzonatate 100 mg capsule 100 mg PO TID PRN cough #20 caps 09/04/22 benzonatate 200 mg capsule 200 mg PO TID PRN cough #14 caps 09/02/23 ondansetron 4 mg disintegrating 4 mg PO Q6H PRN nausea and 10/14/23 tablet vomiting #20 tabs Allergies Allergy/AdvReac Type Severity Reaction Status Date / Time Penicillins [PENICILLINS] Allergy Unknown SWELLING, Verified 10/17/23 23:26 HIVES Review of Systems Review of Systems: Constitutional : No Fever, No Chills ENT/Mouth : No Ear Pain, No Hoarseness, No sore throat Eyes: No Eye Pain, No Swelling, No Redness, No Foreign Body Cardiovascular : No Chest Pain, No SOB Respiratory : No Cough, No Dyspnea Gastrointestinal : No Nausea, No Vomiting, No Diarrhea, No abdominal Pain Genitourinary : No Dysuria, No Hematuria Musculoskeletal : positive joint pain, No Myalgias, No Joint Swelling Skin : No Skin lacerations, No rash Neuro : No Weakness, No Numbness All other systems reviewed and are negative [facility] Past Medical History Source: old records reviewed Medical History No pertinent past medical history Social History Social History Alcohol intake: current Alcohol intake frequency: holidays/special occasions only Substance Use Type: Marijuana Advance Directives: No Advance Directives Information Provided: No Do you have a plan to hurt others: No Plan Physical Exam Vital Signs: Vital Signs: Last Vital Signs Temp 97.9 F 10/18/23 02:24 Pulse 64 10/18/23 02:24 Resp 17 10/18/23 02:24 BP 116/73 10/18/23 02:24 Pulse Ox 97 10/18/23 02:24 O2 Del Method Room Air 10/18/23 02:24 BMI result Body Mass Index 19.9 Appearance: Alert. Oriented X3. No acute distress. Eyes: Pupils equal, round and reactive to light. ENT: Pharynx normal. Neck: Normal inspection. Neck supple. CVS: Normal heart rate and rhythm. Pulses normal. Respiratory: No respiratory distress. Breath sounds normal. Abdomen: Soft and nontender. Skin: Skin warm and dry. Normal skin color. Extremities: No lower extremity edema. R ankle ttp along lateral malleolus NV intact no swelling noted Neuro: Oriented X 3. No motor deficit. No sensory deficit. Medical Decision Making Medical Decision Making MDM Narrative: 23 yo male with R ankle injury from basketball he is NV intact the ankle is not swollen on exam he has normal pulses he is refusing to wear aircast and demanding something stronger than tylenol and motrin. At this time a sprain does not require narcotics and I do not see much swelling or sig trauma he can use RICE and follow up with his PCP Differential Diagnosis Differential Diagnoses: The differential diagnosis associated with the presentation includes sprain, strain Independent Interpretation I performed an independent interpretation of an: Plain X-Ray (no fracture) Radiology Impression Discussion of test interpretation with radiology: I have reviewed the radiologist's reading. External Record Review External record reviewed: Inpatient record Prescription Management I considered prescription management with: Pain Medication Discharge Plan Discharge Clinical Impression: Ankle sprain and strain Patient Disposition: Home, Self-Care Instructions: Ankle Sprain (ED) Additional Instructions: no broken bones seen on xray use crutches and aircast for the next 5 days. follow up with your doctor if not better rest ice elevate Prescriptions: No Action ibuprofen 400 mg tablet 400 mg PO Q6H PRN (Reason: fever or pain) Qty: 14 0RF dextromethorphan HBr 10 mg/5 mL liquid 10 mg PO Q4-6H PRN (Reason: cough) Qty: 118 0RF ibuprofen 600 mg tablet 600 mg PO TID PRN (Reason: pain) Qty: 20 0RF methocarbamol 750 mg tablet 750 mg PO TID PRN (Reason: muscle spasm) Qty: 20 0RF albuterol sulfate [Proventil HFA] 90 mcg/actuation HFA aerosol inhaler 2 puff inhalation Q4-6H PRN (Reason: shortness of breath or wheezing) 30 Days Qty: 6.7 6RF Rx Instructions: May dispense medication equivalent accepted by patient's insurance benzonatate 100 mg capsule 100 mg PO TID PRN (Reason: cough) Qty: 20 0RF ondansetron 4 mg tablet,disintegrating 4 mg PO Q6H PRN (Reason: nausea and vomiting) Qty: 20 0RF benzonatate 200 mg capsule 200 mg PO TID PRN (Reason: cough) Qty: 14 0RF Stand Alone Forms: Work/School Release Print Language: Malaysian
--- NOTE | 2023-10-18 03:06 | PC.NURSE ---
air cast applied to right ankle. pt educated of proper use of crutches.
[2023-10-18 03:10] VITALS: BP 116/73; PULSE 64; RESP 17; TEMP 36.6; O2SAT 97
== END 2023-10-18 03:11 | disposition home or self-care (01) ==
PROVIDERS: Emergency Provider Emergency Medicine
DX: S93.401A Sprain of unspecified ligament of right ankle, initial encounter (principal); S96.911A Strain of unspecified muscle and tendon at ankle and foot level, right foot, initial encounter; Y93.67 Activity, basketball; Y92.9 Unspecified place or not applicable; Y99.9 Unspecified external cause status; M25.571 Pain in right ankle and joints of right foot
CPT/HCPCS: 73600; 99283

== ENCOUNTER 2024-03-01 07:31 | Emergency (ER) | payer SELFPAY ==
--- NOTE | ~2024-03-01 | XR_ITS ---
EXAMINATION: XR CHEST CLINICAL INFORMATION: Shortness of breath COMPARISON: Chest radiograph 09/04/2022 TECHNIQUE: Frontal view of the chest was obtained. FINDINGS: The lungs are well-expanded. No focal consolidation. No pleural effusions or pneumothorax. The cardiac mediastinal silhouette is within normal limits. No acute osseous abnormality. XR/XR chest 1V IMPRESSION: No acute pulmonary disease. Electronically signed by: Delvis Nicholson MD 03/01/2024 09:01 AM EDT
[2024-03-01 07:40] VITALS: BP 119/79; PULSE 96; RESP 20; TEMP 37.1; O2SAT 96; BMI 19.2
[2024-03-01] MEDS: Albuterol Sulfate 90 MCG 8 GM INHALER 4 PUFF INHALE (08:03)
[2024-03-01 08:04] VITALS: PULSE 96; RESP 20; O2SAT 98
--- NOTE | 2024-03-01 08:09 | ED.URI ---
HPI - URI/Sore Throat General Chief Complaint: Upper Respiratory Symptoms Stated Complaint: multiple complaints Time Seen by Provider: 03/01/24 07:56 Source: patient Mode of arrival: ambulatory Limitations: no limitations History of Present Illness ED Provider: Anibal NAIR HPI Narrative: For thing 23-year-old male presenting to the emergency department fatigue, malaise, myalgias, sore throat, purulent cough, wheezing, nausea, headache (diffuse, atraumatic, no visual disturbances) x2 days worsening. Patient reports girlfriend was sick with similar symptoms a few days ago. He reports he just feels overall unwell. Eating and drinking still. Denies vomiting, blood in vomit, blood in stool, abdominal pain, vision changes, dizziness, weakness, chest pain, shortness of breath Related Data Previous Rx's ?Medication ?Instructions ?Recorded dextromethorphan HBr 10 mg/5 mL 10 mg (5 mL) PO Q4-6H PRN cough 06/05/21 oral liquid #118 mL ibuprofen 400 mg tablet 400 mg PO Q6H PRN fever or pain 06/05/21 #14 tabs ibuprofen 600 mg tablet 600 mg PO TID PRN pain #20 tabs 08/05/21 methocarbamol 750 mg tablet 750 mg PO TID PRN muscle spasm #20 08/05/21 tabs albuterol sulfate 90 mcg/actuation 2 puff inhalation Q4-6H PRN 09/04/22 aerosol inhaler (Proventil HFA) shortness of breath or wheezing 30 days #6.7 grams benzonatate 100 mg capsule 100 mg PO TID PRN cough #20 caps 09/04/22 benzonatate 200 mg capsule 200 mg PO TID PRN cough #14 caps 09/02/23 ondansetron 4 mg disintegrating 4 mg PO Q6H PRN nausea and 10/14/23 tablet vomiting #20 tabs albuterol sulfate 90 mcg/actuation 2 inh inhalation Q4-6H PRN 03/01/24 breath activated powder inhaler shortness of breath or wheezing #1 ea azithromycin 250 mg tablet See Rx Instructions PO .COMPLEX #6 03/01/24 tabs benzonatate 100 mg capsule 100 mg PO BID PRN cough #20 caps 03/01/24 prednisone 20 mg tablet 20 mg PO DAILY 5 days #5 tabs 03/01/24 Allergies Allergy/AdvReac Type Severity Reaction Status Date / Time Penicillins [PENICILLINS] Allergy Unknown SWELLING, Verified 03/01/24 07:40 HIVES Review of Systems Review of Systems: Yes all other systems are reviewed and are negative [facility] Past Medical History Attestation statement: The following information was validated with the patient. Source: old records reviewed and nursing notes reviewed Medical History No pertinent past medical history Social History Social History Alcohol intake: current Alcohol intake frequency: holidays/special occasions only Substance Use Type: Marijuana Advance Directives: No Advance Directives Information Provided: Yes Physical Exam Vital Signs: Vital Signs: Last Vital Signs Temp 98.8 F 03/01/24 07:40 Pulse 96 03/01/24 08:04 Resp 20 03/01/24 08:04 BP 119/79 03/01/24 07:40 Pulse Ox 96 03/01/24 07:40 O2 Del Method Room Air 03/01/24 07:40 BMI result Body Mass Index 19.2 vss Appearance: Alert.? Oriented X3.? No acute distress.? Head: Normocephalic, atraumatic, no step-offs or deformities Eyes: Pupils equal, round and reactive to light.? ENT: Pharynx with mild erythema, no edema, uvula midline, speaking in full sentences controlling secretions well no abscess or exudate.? Neck: Normal inspection.? Neck supple.? CVS: Normal heart rate and rhythm.? Pulses normal.? Respiratory: No respiratory distress.? Breath sounds with expiratory wheezing bilaterally.? Abdomen: Soft and nontender.? Skin: Skin warm and dry.? Normal skin color.? Normal skin turgor.? Extremities: No lower extremity edema.? No calf ttp. 5/5 strength to bilateral upper and lower extremities Back: No midline tenderness, no C-spine tenderness, full range of motion, no CVA tenderness bilaterally Neuro: Oriented X 3.? No motor deficit.? No sensory deficit. CN 2-12 intact Course Reevaluation(s) Reevaluation #1: Flu, COVID, RSV negative. Strep negative. Chest x-ray unremarkable has not been read however no pneumonia noted. Due to productive sputum and symptoms will treat for bronchitis. Educated patient on diagnosis and treatment plan, answered all question, patient verbalizes understanding. At this time patient will be discharged home, advised to return with new or worsening symptoms. Educated on worrisome signs and symptoms and when to return. At this time I feel comfortable discharge home. Time: 09:03 Medications Administered Discontinued Medications Generic Name Dose Route Start Last Admin Trade Name Flavioq PRN Reason Stop Dose Admin Albuterol Sulfate 4 puff 03/01/24 07:55 03/01/24 08:03 Albuterol Sulfate 90 Mcg 8 Gm Inhaler INHALE 03/01/24 07:56 4 puff ONCE ONE Administration Medical Decision Making Medical Decision Making [facility] Narrative: 0811 23-year-old male presents with upper respiratory symptoms x2 days. Recent sick contacts at home girlfriend. Physical exam mild erythema to pharynx. Bilateral expiratory wheezing History and physical exam concerning for upper respiratory infection versus bronchitis versus viral illness. Unlikely pneumonia, PE, ACS, no signs of distress. Unlikely metabolic derangements. Will rule out strep. Unlikely epiglottitis, retropharyngeal abscess, peritonsillar abscess. Plan viral testing, x-ray. Will give albuterol. Differential Diagnosis Differential Diagnoses: The differential diagnosis associated with the presentation includes (History and physical exam concerning for upper respiratory infection versus bronchitis versus viral illness. Unlikely pneumonia, PE, ACS, no signs of distress. Unlikely metabolic derangements. Will rule out strep. Unlikely epiglottitis, retropharyngeal abscess, peritonsillar abscess.) History and physical exam concerning for upper respiratory infection versus bronchitis versus viral illness. Unlikely pneumonia, PE, ACS, no signs of distress. Unlikely metabolic derangements. Will rule out strep. Unlikely epiglottitis, retropharyngeal abscess, peritonsillar abscess. Admission/Observation Consideration of admission/observation: Escalation of care including admission/observation considered Lab Data MDM Lab Attestation statement: I reviewed the patient's lab results. Labs: Lab Results 03/01/24 Range/Units 07:52 Influenza Type A (PCR) NEGATIVE (Negative) Influenza Type B (PCR) NEGATIVE (Negative) RSV RNA Qual (PCR) NEGATIVE (Negative) SARS-CoV-2 RNA (RT-PCR) NEGATIVE (Negative) S. pyogenes GrpA CASS Negative (Negative) External Record Review External record reviewed: Office record and Outpatient record Discharge Plan Discharge Clinical Impression: Upper respiratory infection Patient Disposition: Home, Self-Care Instructions: Upper Respiratory Infection (ED), Viral Syndrome (ED) Additional Instructions: Take your medications as prescribed. If you were prescribed antibiotics today, it is important that you take your medication to their entirety, do not skip any doses, do not finish them early. Follow-up with your primary care provider this week. Return to the emergency department with new or worsening symptoms. Such as fevers, chills, chest pain, shortness of breath, nausea, vomiting, dizziness, headache, vision changes, lethargy In case of emergency call 911 Flu, COVID, RSV negative. Strep test negative. Prescriptions: New benzonatate 100 mg capsule 100 mg PO BID PRN (Reason: cough) Qty: 20 0RF albuterol sulfate 90 mcg/actuation aerosol powdr breath activated 2 inh inhalation Q4-6H PRN (Reason: shortness of breath or wheezing) Qty: 1 0RF prednisone 20 mg tablet 20 mg PO DAILY 5 Days Qty: 5 0RF azithromycin 250 mg tablet See Rx Instructions .ROUTE .COMPLEX Qty: 6 0RF Rx Instructions: For 250 mg dose pack: take 500 mg today (day 1), then 250 mg for 4 days (days 2-5) No Action ibuprofen 400 mg tablet 400 mg PO Q6H PRN (Reason: fever or pain) Qty: 14 0RF dextromethorphan HBr 10 mg/5 mL liquid 10 mg PO Q4-6H PRN (Reason: cough) Qty: 118 0RF ibuprofen 600 mg tablet 600 mg PO TID PRN (Reason: pain) Qty: 20 0RF methocarbamol 750 mg tablet 750 mg PO TID PRN (Reason: muscle spasm) Qty: 20 0RF albuterol sulfate [Proventil HFA] 90 mcg/actuation HFA aerosol inhaler 2 puff inhalation Q4-6H PRN (Reason: shortness of breath or wheezing) 30 Days Qty: 6.7 6RF Rx Instructions: May dispense medication equivalent accepted by patient's insurance benzonatate 100 mg capsule 100 mg PO TID PRN (Reason: cough) Qty: 20 0RF ondansetron 4 mg tablet,disintegrating 4 mg PO Q6H PRN (Reason: nausea and vomiting) Qty: 20 0RF benzonatate 200 mg capsule 200 mg PO TID PRN (Reason: cough) Qty: 14 0RF Referrals: Physician,None [Primary Care Provider] - 2 days Stand Alone Forms: Work/School Release Print Language: [place]
[2024-03-01 08:14] LABS: IDNOW Serial# 08D9AD1C; Strep A Nucleic Acid Negative (Negative)
[2024-03-01 08:44] LABS: Influenza A PCR NEGATIVE (Negative); Influenza B PCR NEGATIVE (Negative); Resp Syncy Virus RNA Qual PCR NEGATIVE (Negative); SARS COV2 PCR INHOUSE NEGATIVE (Negative)
[2024-03-01 09:13] VITALS: BP 118/77; PULSE 92; RESP 18; TEMP 36.8; O2SAT 96
== END 2024-03-01 09:13 | disposition home or self-care (01) ==
PROVIDERS: Emergency Provider Student in an Organized Health Care Education/Training Program
DX: J06.9 Acute upper respiratory infection, unspecified (principal); R05.9 Cough, unspecified; Z03.818 Encounter for observation for suspected exposure to other biological agents ruled out; J02.9 Acute pharyngitis, unspecified; Z79.899 Other long term (current) drug therapy
CPT/HCPCS: 0241U; 71045; 87651; 94640; 94664; 99283; 99284

== ENCOUNTER 2024-07-24 13:52 | Emergency (ER) | payer MEDICAID, SELFPAY ==
--- NOTE | ~2024-07-24 | XR_ITS ---
EXAMINATION: XR CHEST CLINICAL INFORMATION: cough COMPARISON: None available. TECHNIQUE: 2 views of the chest were obtained. FINDINGS: The cardiac, hilar, and mediastinal contours are normal. Robust inspiratory effort. The lungs are clear bilaterally. There is no pneumothorax or pleural effusion. There is no focal osseous or soft tissue abnormality. XR/XR chest 2V IMPRESSION: Normal chest. Electronically signed by: Torrey Briseno MD 07/24/2024 04:12 PM [facility]
--- NOTE | 2024-07-24 14:04 | ECG_ITS ---
Test Reason : weakness Blood Pressure : */* mmHG Vent. Rate : 59 BPM Atrial Rate : 59 BPM P-R Int : 158 ms QRS Dur : 92 ms QT Int : 378 ms P-R-T Axes : 58 61 43 degrees QTcB Int : 374 ms Sinus bradycardia Otherwise normal ECG No previous ECGs available Referred By: Vishal Loera Electronically Signed By: XIOMARA TAN
--- OUTSIDE RECORDS SUMMARY | 2024-07-24 14:35 | XMS_ITS | Clinical Summary ---
Author Organization [facility] Address [address] [place] [address] Phone Care Team Providers Care Senior Architect Name Role Phone Unavailable Primary Care Provider Unavailabl e Immunizations Immunization Administration Dates Next Due DTaP 5 07/12/1999,01/04/1999,1998 ,1998 Hep B, ped/adol 1998,1998,1998 Hib (PRP-T) 07/12/1999,1998,1998 ,1998 IPV 01/04/1999,1998,1998 Influenza, injectable, trivalent 08/17/2006,04/05 MMR 12/31/2002,10/11/1999 Varicella 08/24/2007,07/05/1999 Family History Relation Name Status Comments Brother Alive Brother: Alive and well Mother Alive Mother: HIV, Al michelet and well Sister Alive Sister: Alive a nd well Social History Tobacco Use Types Packs/Day Years Used Date Smoking Tobacco: Never Assessed Sex and Gender Information Value Date Recorded Sex Assigned at Not on file Legal Sex Male 4:24 PM EDT Gender Identity Not on file Sexual Orientation Not on file Plan of Treatment Health Maintenance Due Date Last Done Comments IPV Vaccines (4 of 4 - 4-dose series) 2002 01/04/1999, 1998, 1998 DTaP,Tdap,and Td Vaccines (5 - Tdap) 2009 07/12/1999, 01/04/1999, 1998, Additional history exists HPV Vaccines (1 - Male 3-dose series) 2013 Consider Men B Vaccine (1 of 2 - Bexsero 2-dose series) 2014 Influenza Vaccines (#1) 2024 08/17/2006, 04/19 COVID-19 Vaccine (2023- season) 2024 Hepatitis B Vaccines Completed 1998, 1998, 1998 HIB Vaccines Completed 07/12/1999, 10/03, 1998, Additional history exists MMR Vaccines Completed 12/31/2002, 10/11/1999 Varicella Vaccines Completed 08/24/2007, 07/05/1999 Hepatitis A Vaccines Aged Out No long er eligible based on patient's age to complete this topic Men B Vaccine Aged Out No longer elig ible based on patient's age to complete this topic Meningococcal Vaccine Aged Out No rebeca mary eligible based on patient's age to complete this topic Pneumococcal Vaccine Aged Out No long er eligible based on patient's age to complete this topic
--- OUTSIDE RECORDS SUMMARY | 2024-07-24 14:36 | XMS_ITS | Encounter Summary ---
Author Organization [facility] Address [address] [place] [address] Phone Care Team Providers Care Approver Name Role Phone Yasmin Walker MD Primary Care Provider [phone] Encounter Details Date Type Department Care Team (Late st Contact Info) Description 01/19/2017 Conversion Encounter [facility] [address] [place] [address] Social History Tobacco Use Types Packs/Day Years Used Date Smoking Tobacco: Never Assessed Sex and Gender Information Value Date Recorded Sex Assigned at Not on file Legal Sex Male 4:24 PM EDT Gender Identity Not on file Sexual Orientation Not on file documented as of this encounter Plan of Treatment Not on file documented as of this encounter Visit Diagnoses Not on filedocumented in this encounter Care Teams Approver Relationship Specialty Start Date End Date Yasmin Walker MD [address] [place] [address] PCP - General 01/13/17 11/09/22 documented as of this encounter
[2024-07-24 15:38] VITALS: BP 92/58; PULSE 64; RESP 18; TEMP 36.6; O2SAT 99; BMI 17.9
--- NOTE | 2024-07-24 15:39 | ED_ITS ---
HPI - General Adult General Chief complaint: Upper Respiratory Symptoms Stated complaint: Cough, Congestion, Chest Pain Time Seen by Provider: 07/24/24 16:52 Source: patient, RN notes reviewed and old records reviewed Mode of arrival: ambulatory Limitations: no limitations History of Present Illness ED Provider: Evaristo HPI narrative: 24-year-old male presents for evaluation of cough, congestion, weakness and chest pain. His symptoms started 2 days ago. He reports fevers and chills subjectively but did not take his temperature. No recent travel or leg swelling The patient denies any medical history Related Data Previous Rx's ?Medication ?Instructions ?Recorded dextromethorphan HBr 10 mg/5 mL 10 mg (5 mL) PO Q4-6H PRN cough 06/05/21 oral liquid #118 mL ibuprofen 400 mg tablet 400 mg PO Q6H PRN fever or pain 06/05/21 #14 tabs ibuprofen 600 mg tablet 600 mg PO TID PRN pain #20 tabs 08/05/21 methocarbamol 750 mg tablet 750 mg PO TID PRN muscle spasm #20 08/05/21 tabs albuterol sulfate 90 mcg/actuation 2 puff inhalation Q4-6H PRN 09/04/22 aerosol inhaler (Proventil HFA) shortness of breath or wheezing 30 days #6.7 grams benzonatate 100 mg capsule 100 mg PO TID PRN cough #20 caps 09/04/22 benzonatate 200 mg capsule 200 mg PO TID PRN cough #14 caps 09/02/23 ondansetron 4 mg disintegrating 4 mg PO Q6H PRN nausea and 10/14/23 tablet vomiting #20 tabs albuterol sulfate 90 mcg/actuation 2 inh inhalation Q4-6H PRN 03/01/24 breath activated powder inhaler shortness of breath or wheezing #1 ea azithromycin 250 mg tablet See Rx Instructions PO .COMPLEX #6 03/01/24 tabs benzonatate 100 mg capsule 100 mg PO BID PRN cough #20 caps 03/01/24 prednisone 20 mg tablet 20 mg PO DAILY 5 days #5 tabs 03/01/24 azithromycin 250 mg tablet See Rx Instructions PO .COMPLEX #6 07/24/24 tabs Allergies Allergy/AdvReac Type Severity Reaction Status Date / Time Penicillins [PENICILLINS] Allergy Unknown SWELLING, Verified 07/24/24 15:44 HIVES Review of Systems Constitutional: Constitutional: Denies body ache(s), Reports chills, Reports fever(s) and Reports headache(s) ENT: Reports headache(s) and Reports sore throat Cardiovascular: Cardiovascular: Reports chest pain and Reports dyspnea Respiratory: Respiratory: Reports cough and Reports dyspnea Gastrointestinal: Gastrointestinal: Denies abdominal pain, Denies nausea and Denies vomiting Musculoskeletal: Musculoskeletal: Denies back pain Integumentary/Breasts: Skin/Breast: Denies rash Neurologic: Reports headache(s) [facility] Past Medical History Medical History No pertinent past medical history Social History Social History Alcohol intake: current Alcohol intake frequency: holidays/special occasions only Substance Use Type: Marijuana Advance Directives: No Advance Directives Information Provided: Yes Do you have a plan to hurt others: No Plan Physical Exam ED Vital Signs: Vital Signs - 24 hr 07/24/24 15:38 07/24/24 15:54 07/24/24 17:00 Temperature 97.8 F 97.8 F Pulse Rate 64 64 Respiratory Rate 18 18 Blood Pressure 92/58 L 150/80 H 150/80 H Pulse Oximetry 99 99 Oxygen Delivery Method Room Air Room Air BMI result Body Mass Index 17.9 Const General: healthy appearing, comfortable, no acute distress, alert and awake Nutritional Appearance: well nourished Orientation/consciousness: patient oriented x3 HENMT Head: Yes normocephalic and Yes atraumatic Throat: Yes posterior oropharynx normal Eyes Eyelids: Yes eyelids normal Conjunctivae: conjunctivae normal Sclerae: sclerae normal Corneas: corneas normal Pupils: Equal, round and reactive pupils present EOM: EOMs intact bilaterally Neck Neck: Yes full ROM Resp Effort & Inspection: normal respiratory effort, able to speak in complete sentences, no audible wheezes and not labored Auscultation: clear to auscultation bilaterally Skin General skin exam: elasticity normal Neuro General: patient oriented x3 Cranial nerves: Yes Equal, round and reactive pupils present and Yes Bilaterally intact EOM present Cognition (Neuro): normal cognition Extrem Other: Moving all extremities well without any obvious deformities Course Course Course Narrative: KRYSTLE, this is a rapid medical exam performed by Jordan Loera please refer to primary provider for complete H&P- 24 year old male presents for evaluation of cough, congestion, and chest pain for the last 2 days. Plan for EKG, viral swabs and chest x-ray. Medical Decision Making Medical Decision Making [facility] Narrative: 24-year-old male presents for evaluation of cough and shortness of breath. He does complain of chest pain, his EKG is nonischemic. He was hypotensive in triage however this was repeated just a few minutes later after removing his swe ater, his blood pressure was 150/80. He appears well, chest x-ray without evidence of pneumonia, flu swabs negative. We will treat with azithromycin for upper respiratory infection. Differential Diagnosis Differential Diagnoses: The differential diagnosis associated with the presentation includes Upper respiratory infection Pneumonia Influenza Bronchitis Lab Data Labs: Lab Results 07/24/24 Range/Units 15:09 Influenza Type A (PCR) NEGATIVE (Negative) Influenza Type B (PCR) NEGATIVE (Negative) RSV RNA Qual (PCR) NEGATIVE (Negative) SARS-CoV-2 RNA (RT-PCR) NEGATIVE (Negative) Independent Interpretation I performed an independent interpretation of an: Plain X-Ray Interpretation: No infiltrates Radiology Impression Discussion of test interpretation with radiology: I have reviewed the radiologist's reading. Radiologist Impression: FINDINGS: The cardiac, hilar, and mediastinal contours are normal. Robust inspiratory effort. The lungs are clear bilaterally. There is no pneumothorax or pleural effusion. There is no focal osseous or soft tissue abnormality. XR/XR chest 2V IMPRESSION: Normal chest. Electronically signed by: Torrey Briseno MD 07/24/2024 04:12 PM [facility] Discharge Plan Discharge Clinical Impression: Upper respiratory infection Patient Disposition: Home, Self-Care Instructions: Upper Respiratory Infection (ED) Additional Instructions: You tested negative for influenza, COVID, RSV. Your chest x-ray was clear. Take azithromycin as prescribed for an upper respiratory infection Follow-up with your primary doctor, return for new or worsening symptoms Prescriptions: New azithromycin 250 mg tablet See Rx Instructions .ROUTE .COMPLEX Qty: 6 0RF Rx Instructions: For 250 mg dose pack: take 500 mg today (day 1), then 250 mg for 4 days (days 2-5) No Action ibuprofen 400 mg tablet 400 mg PO Q6H PRN (Reason: fever or pain) Qty: 14 0RF dextromethorphan HBr 10 mg/5 mL liquid 10 mg PO Q4-6H PRN (Reason: cough) Qty: 118 0RF ibuprofen 600 mg tablet 600 mg PO TID PRN (Reason: pain) Qty: 20 0RF methocarbamol 750 mg tablet 750 mg PO TID PRN (Reason: muscle spasm) Qty: 20 0RF albuterol sulfate [Proventil HFA] 90 mcg/actuation HFA aerosol inhaler 2 puff inhalation Q4-6H PRN (Reason: shortness of breath or wheezing) 30 Days Qty: 6.7 6RF Rx Instructions: May dispense medication equivalent accepted by patient's insurance benzonatate 100 mg capsule 100 mg PO TID PRN (Reason: cough) Qty: 20 0RF ondansetron 4 mg tablet,disintegrating 4 mg PO Q6H PRN (Reason: nausea and vomiting) Qty: 20 0RF benzonatate 100 mg capsule 100 mg PO BID PRN (Reason: cough) Qty: 20 0RF albuterol sulfate 90 mcg/actuation aerosol powdr breath activated 2 inh inhalation Q4-6H PRN (Reason: shortness of breath or wheezing) Qty: 1 0RF prednisone 20 mg tablet 20 mg PO DAILY 5 Days Qty: 5 0RF azithromycin 250 mg tablet See Rx Instructions .ROUTE .COMPLEX Qty: 6 0RF Rx Instructions: For 250 mg dose pack: take 500 mg today (day 1), then 250 mg for 4 days (days 2-5) benzonatate 200 mg capsule 200 mg PO TID PRN (Reason: cough) Qty: 14 0RF Stand Alone Forms: Work/School Release Interventions: ED Discharge Assessment Last Done: 07/24/24 17:00 Discharge Date/Time: 07/24/24 17:01 Print Language: Hebrew
[2024-07-24 15:54] VITALS: BP 150/80
[2024-07-24 16:26] LABS: Influenza A PCR NEGATIVE (Negative); Influenza B PCR NEGATIVE (Negative); Resp Syncy Virus RNA Qual PCR NEGATIVE (Negative); SARS COV2 PCR INHOUSE NEGATIVE (Negative)
[2024-07-24 17:00] VITALS: BP 150/80; PULSE 64; RESP 18; TEMP 36.6; O2SAT 99
== END 2024-07-24 17:01 | disposition home or self-care (01) ==
PROVIDERS: Physician Assistant; Emergency Provider Emergency Medicine
DX: J06.9 Acute upper respiratory infection, unspecified (principal); R05.9 Cough, unspecified; Z03.818 Encounter for observation for suspected exposure to other biological agents ruled out
CPT/HCPCS: 0241U; 71046; 93005; 99283

== ENCOUNTER → 2024-07-24 14:04 | Outpatient (BNV) | payer SELFPAY | PROVIDERS: Emergency Provider Emergency Medicine; Visit Provider Internal Medicine | DX: R00.1 Bradycardia, unspecified (principal) | CPT/HCPCS: 93010 ==

== ENCOUNTER → 2024-07-24 15:39 | Outpatient (BNV) | payer SELFPAY | PROVIDERS: Emergency Provider Emergency Medicine; Visit Provider Radiology Diagnostic Radiology | DX: R05.9 Cough, unspecified (principal) | CPT/HCPCS: 71046 ==